=== PATIENT | male | born 1975 | race Caucasian/White ===

== ENCOUNTER 2017-03-14 18:33 | Emergency (ER) | payer BC, MEDICAID ==
[2017-03-14] MEDS ORDERED: HYDROcodone/Acetaminophen 10/325 mg Tablet ONE (19:10)
--- NOTE | 2017-03-14 20:29 | RAD ---
THREE VIEWS OF THE LUMBAR SPINE 03/14/17 INDICATION: Low back pain radiating to the left leg for three days. FINDINGS: There is multilevel, mild to moderate degenerative changes. Spinal alignment is preserved. No acute f racture is evident. SI joints are normal appearing. IMPRESSION: Mild to moderate disc degenerative disease of the lumbar spine. POS: ASHA
== END 2017-03-14 20:19 | disposition home or self-care (01) ==
LOC: ERS 18:33
DX: M51.36 Other intervertebral disc degeneration, lumbar region (principal); K21.9 Gastro-esophageal reflux disease without esophagitis; E78.5 Hyperlipidemia, unspecified; E66.9 Obesity, unspecified; E11.9 Type 2 diabetes mellitus without complications; E03.9 Hypothyroidism, unspecified; I10 Essential (primary) hypertension; Z79.4 Long term (current) use of insulin; Z86.711 Personal history of pulmonary embolism
CPT/HCPCS: 72100

== ENCOUNTER 2017-03-17 17:58 | Emergency (ER) | payer BC, MEDICAID ==
[2017-03-17] MEDS ORDERED: HYDROcodone/Acetaminophen 10/325 mg Tablet ONE (22:14)
--- NOTE | 2017-03-17 23:02 | ULT ---
VENOUS DOPPLER LEFT LOWER EXTREMITY: Indication: Left lower extremity pain and edema. TECHNIQUE: Glass scale, color Doppler, and vascular duplex with spectral analysis was performed of the deep venou s structures of the left lower extremity. The common femoral vein, superficial femoral vein, poplitea l vein, posterior tibial vein, proximal greater saphenous, and proximal profunda veins were assessed. FINDINGS: There is normal compressibility, flow, and augmentation seen within the deep venous structures of the left lower extremity. IMPRESSION: No evidence of DVT within the left lower extremity. POS: ASHA
== END 2017-03-17 23:21 | disposition home or self-care (01) ==
LOC: ERS 17:58
DX: M54.32 Sciatica, left side (principal); K21.9 Gastro-esophageal reflux disease without esophagitis; E66.9 Obesity, unspecified; E11.9 Type 2 diabetes mellitus without complications; E03.9 Hypothyroidism, unspecified; E78.5 Hyperlipidemia, unspecified; I10 Essential (primary) hypertension; Z79.82 Long term (current) use of aspirin; Z79.899 Other long term (current) drug therapy

== ENCOUNTER 2017-04-01 09:16 | Emergency (ER) | payer BC ==
[2017-04-01] MEDS ORDERED: Morphine 4 MG/ML Carpuject ONE (10:06)
[2017-04-01] MEDS ORDERED: Ketorolac Tromethamine 60 MG/2 ML VIAL ONE (10:06)
== END 2017-04-01 12:05 | disposition home or self-care (01) ==
LOC: ERS 09:16
DX: G89.29 Other chronic pain (principal); M54.9 Dorsalgia, unspecified; K21.9 Gastro-esophageal reflux disease without esophagitis; E78.5 Hyperlipidemia, unspecified; E66.9 Obesity, unspecified; E11.9 Type 2 diabetes mellitus without complications; E03.9 Hypothyroidism, unspecified; I10 Essential (primary) hypertension; Z86.711 Personal history of pulmonary embolism; Z79.4 Long term (current) use of insulin
CPT/HCPCS: 96372; J1885; J2270

== ENCOUNTER 2018-06-02 06:17 | Emergency (ER) | payer OTHER, MEDICAID ==
[2018-06-02] MEDS ORDERED: Nitroglycerin 2% Ointment 1 INCH/1 GM Packet ONE (06:50)
[2018-06-02] MEDS ORDERED: Aspirin Chewable 81 MG TAB ONE (06:50)
[2018-06-02] MEDS ORDERED: Nitroglycerin 0.4 MG TAB 1 EACH ONE (06:50)
[2018-06-02 07:04] LABS: #Eosinphils 0.3 thou/uL (0.0-0.7); #Lymphocytes 1.2 thou/uL (1.20-3.40); #Monocytes 0.7 thou/uL (0.11-0.59); #Neutrophils 2.9 thou/uL (1.40-6.50); %Basophils 0.4 % (0.0-1.0); %Eosinophils 5.9 % (0.0-10.0); %Lymphocytes 22.8 % (21.0-51.0); %Monocytes 14.2 % (0.0-10.0); %Neutrophils 56.7 % (42.0-75.0); Hemoglobin 12.4 g/dL (14.0-18.0); Mean Corpuscular HGB CONC 33.4 g/dL (32.0-36.0); Mean Corpuscular Hemoglobin 31.5 pg (27.0-31.0); Mean Corpuscular Volume 94.3 fL (78.0-98.0); Platelet Count 190 thou/uL (130-400); Red Blood Cell (RBC) Count 3.95 mill/uL (4.70-6.10); White Blood Cell (WBC) Count 5.2 thou/uL (4.8-10.8)
[2018-06-02 07:31] LABS: ALT (SGPT) 33 U/L (8-55); AST (SGOT) 34 U/L (5-34); Albumin 2.9 g/dL (3.5-5.0); Alkaline Phosphatase 112 U/L (40-150); Anion Gap 15 mmol/L (10-20); BUN (Urea Nitrogen) 30 mg/dL (8.9-20.6); Bilirubin, Total 0.4 mg/dL (0.2-1.2); CK (CPK) 234 U/L (30-200); Calc. Creatinine Clearance 0 mL/min (70-130); Calcium 9.7 mg/dL (7.8-10.44); Carbon Dioxide 24 mmol/L (22-29); Chloride 106 mmol/L (98-107); Estimated GFR-MDRD 32; Globulin 2.3 g/dL (2.4-3.5); Glucose 143 mg/dL (70-105); Lipase 15 U/L (8-78); Protein, Total 5.2 g/dL (6.0-8.3); Sodium 141 mmol/L (136-145)
--- NOTE | 2018-06-02 08:10 | RAD ---
FRONTAL VIEW CHEST: INDICATIONS: Chest pain. COMPARISON: 09/29/2016 FINDINGS: The cardiac silhouette is accentuated. There is no lobar consolidation, effusion, or discrete pneumo thorax. IMPRESSION: No focal consolidation. POS: ASHA
[2018-06-02 10:40] LABS: Troponin I 0.019 ng/mL (< 0.028)
--- NOTE | 2018-06-06 16:49 | EKG ---
Test Reason : Blood Pressure : / mmHG Vent. Rate : 072 BPM Atrial Rate : 072 BPM P-R Int : 186 ms QRS Dur : 088 ms QT Int : 404 ms P-R-T Axes : 019 -06 006 degrees QTc Int : 442 ms Normal sinus rhythm Poor R wave progression Abnormal ECG Confirmed by CLAUDIA TORRES DO ([id number]), deputy editor in chief TRENTON QUINN ([id number] on 06/06/2018 4:48:57 PM Referred By: Confirmed By:CLAUDIA TORRES DO
== END 2018-06-02 11:21 | disposition home or self-care (01) ==
LOC: ERS 06:17
DX: I16.0 Hypertensive urgency (principal); K21.9 Gastro-esophageal reflux disease without esophagitis; E11.9 Type 2 diabetes mellitus without complications; E03.9 Hypothyroidism, unspecified; E66.9 Obesity, unspecified; Z86.711 Personal history of pulmonary embolism; Z79.899 Other long term (current) drug therapy; Z79.82 Long term (current) use of aspirin
CPT/HCPCS: 36415; 71045; 80053; 82550; 83690; 84484; 85025; 93005; 94760; J3490

== ENCOUNTER 2018-08-02 13:44 | Emergency (ER) | payer MEDICARE, MEDICAID ==
[~2018-08-02 13:44] MED LIST: ISOVUE-370 76%-LOCM 1 ML ONE
[2018-08-02] MEDS ORDERED: Aspirin 325 MG TAB ONE (13:58)
[2018-08-02 14:36] LABS: #Eosinphils 0.2 thou/uL (0.0-0.7); #Lymphocytes 1.1 thou/uL (1.20-3.40); #Monocytes 0.8 thou/uL (0.11-0.59); #Neutrophils 4.9 thou/uL (1.40-6.50); %Basophils 0.6 % (0.0-1.0); %Eosinophils 3.5 % (0.0-10.0); %Lymphocytes 15.2 % (21.0-51.0); %Monocytes 10.7 % (0.0-10.0); Hemoglobin 12.1 g/dL (14.0-18.0); Mean Corpuscular HGB CONC 33.8 g/dL (32.0-36.0); Mean Corpuscular Hemoglobin 31.9 pg (27.0-31.0); Mean Corpuscular Volume 94.5 fL (78.0-98.0); Mean Platelet Volume 9.1 fL (7.4-10.4); Platelet Count 199 thou/uL (130-400); RBC Distribution Width 12.1 % (11.5-14.5); Red Blood Cell (RBC) Count 3.78 mill/uL (4.70-6.10); White Blood Cell (WBC) Count 6.9 thou/uL (4.8-10.8)
--- NOTE | 2018-08-02 14:53 | CT ---
CT ABDOMEN AND PELVIS WITH IV CONTRAST: Multiple axial tomograms were obtained through the abdomen and pelvis with IV enhancement. INDICATION: Right lower quadrant abdominal pain. COMPARISON: Comparison is made to CT abdomen and pelvis 11/20/2015. FINDINGS: Lung bases appear clear. Liver, spleen, and pancreas unremarkable. Adrenal glands unremarkable. A fat tumor left6 adrenal gland consistent with an adrenal myelolipoma has been previously described and is stable. Left renal atrophy is again noted. The right kidney shows mild compensatory hypertrophy. Some mild perinephric stranding of uncertain s ignificance. No hydronephrosis. Urinary bladder unremarkable. Correlate for pyelonephritis. Small bowel loops appear normal. Appendix appears unremarkable. Coln unremarkable. Aorta normal caliber. Images through the pelvis unremarkable. IMPRESSION: 1. Mild right perinephric stranding. No hydronephrosis or urinary calculus seen. Evaluate for urin florence tract infection. 2. CT abdomen and pelvis otherwise unremarkable and stable from prior exam. POS: OFF
--- NOTE | 2018-08-02 14:56 | RAD ---
PORTABLE CHEST: HISTORY: Chest pain. COMPARISON: 06/02/2018. FINDINGS: The lungs appear clear. No infiltrate seen. Heart and mediastinum unremarkable. Calcified mediasti nal and hilar lymph nodes again noted. IMPRESSION: No acute process. POS: OFF
[2018-08-02 15:12] LABS: ALT (SGPT) 27 U/L (8-55); AST (SGOT) 29 U/L (5-34); Albumin 2.5 g/dL (3.5-5.0); Alkaline Phosphatase 110 U/L (40-150); Anion Gap 13 mmol/L (10-20); BUN (Urea Nitrogen) 27 mg/dL (8.9-20.6); Bilirubin, Total 0.3 mg/dL (0.2-1.2); Calc. Creatinine Clearance 0 mL/min (70-130); Calcium 8.4 mg/dL (7.8-10.44); Carbon Dioxide 24 mmol/L (22-29); Chloride 105 mmol/L (98-107); Estimated GFR-MDRD 27; Globulin 2.2 g/dL (2.4-3.5); Glucose 317 mg/dL (70-105); Potassium 3.8 mmol/L (3.5-5.1); Protein, Total 4.7 g/dL (6.0-8.3); Sodium 138 mmol/L (136-145)
[2018-08-02 15:13] LABS: CK (CPK) 333 U/L (30-200)
[2018-08-02 15:28] LABS: Lipase 14 U/L (8-78)
[2018-08-02 15:32] LABS: Bilirubin Negative (Negative); Blood, Urine Trace (Negative); Clarity CLEAR (Clear); Glucose, Urine (Dipstick) 500 mg/dL (Negative); Leukocyte Negative (Negative); Nitrite Negative (Negative); Protein, Urine (Dipstick) 300 mg/dL (Neg-Trace); Specific Gravity, Urine 1.016 (1.002-1.036); Urobilinogen 0.2 mg/dL (0.2-1.0)
[2018-08-02 15:34] LABS: Bacteria/HPF None Seen HPF (None Seen); Hyaline Casts/LPF 4-6 HYALINE CAST LPF (0-3 Hyaline); Pathc Cast-AUWi Flag 0.54 (0-2.49); Squamous Epithelial 0-3 HPF (0-3); WBC/HPF 0-3 HPF (0-3)
[2018-08-02 16:24] LABS: Troponin I 0.014 ng/mL (< 0.028)
== END 2018-08-02 17:21 | disposition home or self-care (01) ==
LOC: ERS 13:44
DX: R10.84 Generalized abdominal pain (principal); R07.89 Other chest pain; R31.9 Hematuria, unspecified; E11.65 Type 2 diabetes mellitus with hyperglycemia; E11.22 Type 2 diabetes mellitus with diabetic chronic kidney disease; I12.9 Hypertensive chronic kidney disease with stage 1 through stage 4 chronic kidney disease, or unspecified chronic kidney disease; N18.9 Chronic kidney disease, unspecified; K21.9 Gastro-esophageal reflux disease without esophagitis; E78.5 Hyperlipidemia, unspecified; Z86.711 Personal history of pulmonary embolism; E66.9 Obesity, unspecified; E03.9 Hypothyroidism, unspecified; Z79.4 Long term (current) use of insulin; Z79.02 Long term (current) use of antithrombotics/antiplatelets; Z79.899 Other long term (current) drug therapy
CPT/HCPCS: 36415; 71045; 74177; 80053; 81003; 81015; 82550; 83690; 84484; 85025; 87086; 93005; Q9966

== ENCOUNTER 2018-08-06 16:19 | Emergency (ER) | payer MEDICARE, MEDICAID ==
[2018-08-06 17:00] LABS: #Eosinphils 0.2 thou/uL (0.0-0.7); #Lymphocytes 1.2 thou/uL (1.20-3.40); #Monocytes 0.8 thou/uL (0.11-0.59); #Neutrophils 3.7 thou/uL (1.40-6.50); %Basophils 0.8 % (0.0-1.0); %Eosinophils 4.1 % (0.0-10.0); %Lymphocytes 19.5 % (21.0-51.0); %Monocytes 12.9 % (0.0-10.0); %Neutrophils 62.8 % (42.0-75.0); Hemoglobin 12.3 g/dL (14.0-18.0); Mean Corpuscular HGB CONC 33.1 g/dL (32.0-36.0); Mean Corpuscular Hemoglobin 31.3 pg (27.0-31.0); Mean Corpuscular Volume 94.4 fL (78.0-98.0); Mean Platelet Volume 8.7 fL (7.4-10.4); Platelet Count 193 thou/uL (130-400); RBC Distribution Width 12.3 % (11.5-14.5); Red Blood Cell (RBC) Count 3.93 mill/uL (4.70-6.10); White Blood Cell (WBC) Count 5.9 thou/uL (4.8-10.8)
[2018-08-06 17:21] LABS: ALT (SGPT) 22 U/L (8-55); AST (SGOT) 24 U/L (5-34); Albumin 2.6 g/dL (3.5-5.0); Alkaline Phosphatase 104 U/L (40-150); Anion Gap 10 mmol/L (10-20); BUN (Urea Nitrogen) 28 mg/dL (8.9-20.6); Bilirubin, Total 0.3 mg/dL (0.2-1.2); CK (CPK) 413 U/L (30-200); Calc. Creatinine Clearance 0 mL/min (70-130); Calcium 8.7 mg/dL (7.8-10.44); Carbon Dioxide 24 mmol/L (22-29); Chloride 105 mmol/L (98-107); Estimated GFR-MDRD 23; Globulin 2.8 g/dL (2.4-3.5); Glucose 361 mg/dL (70-105); Potassium 3.8 mmol/L (3.5-5.1); Protein, Total 5.4 g/dL (6.0-8.3); Sodium 135 mmol/L (136-145)
--- NOTE | 2018-08-06 18:14 | RAD ---
AP view chest. HISTORY: Elevated blood pressure. AP view chest obtained. Comparison made to previous exam from 08/02/2018. AP view chest demonstrates cardiomegaly. The lungs are well aerated. No evidence of active intrathora cic disease seen. No evidence of effusions, pneumonia or pneumothorax seen. IMPRESSION: Cardiomegaly.
[2018-08-06] MEDS ORDERED: hydrALAZINE 25 MG TAB ONE (18:26)
[2018-08-06] MEDS ORDERED: Ketorolac Tromethamine 30 MG/ML VIAL ONE (18:26)
[2018-08-06] MEDS ORDERED: Morphine 4 MG/ML VIAL ONE (20:42)
== END 2018-08-06 21:45 | disposition home or self-care (01) ==
LOC: ERS 16:19
DX: I10 Essential (primary) hypertension (principal); R53.83 Other fatigue; K21.9 Gastro-esophageal reflux disease without esophagitis; E78.5 Hyperlipidemia, unspecified; Z86.711 Personal history of pulmonary embolism; E66.9 Obesity, unspecified; E11.9 Type 2 diabetes mellitus without complications; Z79.4 Long term (current) use of insulin; E03.9 Hypothyroidism, unspecified; Z79.899 Other long term (current) drug therapy
CPT/HCPCS: 36415; 71045; 80053; 82010; 82550; 84484; 85025; 93005; 96361; 96374; 96375; J1885; J2270

== ENCOUNTER 2020-02-25 10:19 | Inpatient (IN) | payer MEDICARE ==
[2020-02-25 11:25] LABS: #Eosinphils 0.3 thou/uL (0.0-0.7); #Lymphocytes 0.9 thou/uL (1.20-3.40); #Monocytes 0.6 thou/uL (0.11-0.59); #Neutrophils 3.3 thou/uL (1.40-6.50); %Basophils 0.6 % (0.0-1.0); %Eosinophils 5.5 % (0.0-10.0); %Lymphocytes 17.5 % (21.0-51.0); %Monocytes 12.1 % (0.0-10.0); %Neutrophils 64.4 % (42.0-75.0); Hemoglobin 9.3 g/dL (14.0-18.0); Mean Corpuscular HGB CONC 33.1 g/dL (32.0-36.0); Mean Corpuscular Hemoglobin 32.3 pg (27.0-31.0); Mean Corpuscular Volume 97.6 fL (78.0-98.0); Mean Platelet Volume 9.4 fL (7.4-10.4); Platelet Count 157 thou/uL (130-400); RBC Distribution Width 14.2 % (11.5-14.5); Red Blood Cell (RBC) Count 2.86 mill/uL (4.70-6.10); White Blood Cell (WBC) Count 5.1 thou/uL (4.8-10.8)
[2020-02-25 11:30] LABS: PTT 32.6 sec (22.9-36.1); Prothrombin Time 13.6 sec (12.0-14.7)
[2020-02-25] MEDS ORDERED: Furosemide 40 MG/4 ML VIAL ONE (11:30)
[2020-02-25 11:45] LABS: D-Dimer Test 5.37 *mcg/mL (0.27-0.43)
[2020-02-25 11:47] LABS: ALT (SGPT) 15 U/L (8-55); AST (SGOT) 25 U/L (5-34); Albumin 2.3 g/dL (3.5-5.0); Alkaline Phosphatase 94 U/L (40-110); Anion Gap 13 mmol/L (10-20); BUN (Urea Nitrogen) 40 mg/dL (8.9-20.6); Bilirubin, Total 0.4 mg/dL (0.2-1.2); Calc. Creatinine Clearance 0 mL/min (70-130); Calcium 7.9 mg/dL (7.8-10.44); Carbon Dioxide 20 mmol/L (22-29); Chloride 116 mmol/L (98-107); Globulin 2.9 g/dL (2.4-3.5); Glucose 155 mg/dL (70-105); Potassium 3.4 mmol/L (3.5-5.1); Protein, Total 5.2 g/dL (6.0-8.3); Sodium 146 mmol/L (136-145)
--- NOTE | 2020-02-25 11:47 | RAD ---
TWO VIEWS OF THE CHEST: COMPARISON: 08/06/2018. HISTORY: Chest pain. FINDINGS: A single view of the chest shows an enlarged but stable cardiomediastinal silhouette. There is obscu rity of the left hemidiaphragm which may be secondary to pleural effusion and/or adjacent infiltrate. Bilateral pulmonary vascular enlargement is seen. There is questionable airspace opacity projectin g over the right lower lobe. IMPRESSION: 1. Cardiomegaly. 2. Left pleural effusion with adjacent atelectasis versus infiltrate. 3. Right basilar infiltrate. POS: EAA
[2020-02-25] MEDS ORDERED: Nitroglycerin 2% Ointment 1 INCH/1 GM Packet ONE (12:01)
[2020-02-25 12:23] LABS: CKMB 6.5 ng/mL (0-6.6)
[2020-02-25] MEDS ORDERED: hydrALAZINE 25 MG TAB ONE (12:49)
[2020-02-25] MEDS ORDERED: Nitroglycerin 0.4 MG TAB 1 EACH ONE (12:49)
[2020-02-25] MEDS ORDERED: hydrALAZINE 20 MG/ML VIAL ONE ×2 (13:16→15:12)
[2020-02-25] MEDS ORDERED: Furosemide 40 MG/4 ML VIAL SLOW IVP SCH (13:30)
[2020-02-25] MEDS ORDERED: Aspirin 325 MG TAB PO SCH (13:30)
[2020-02-25] MEDS ORDERED: Nitroglycerin 0.4 MG TAB (25 Tab Bottle) SL PRN (13:31)
[2020-02-25] MEDS ORDERED: cefTRIAXone\\ROCEPHIN 2 GM VIAL ONE (13:38)
--- NOTE | 2020-02-25 13:38 | PDOC.HHP ---
Hospitalist HPI - History of Present Illness SOB History of Present Illness: Mr. Marlow is a 44-year-old male with past medical history of stage IV chronic kidney disease, hypertension, hyperlipidemia, pulmonary embolism, type 2 diabetes mellitus on insulin, hypothyroidism, obstructive sleep apnea, conges tive heart failure, morbid obesity who presents to the emergency room for shortness of breath. Patient reports that for the past 2 days he has had worsening shortness of breath that he notices is worse when he is lying down at night. Patient has also noticed a worsening of his peripheral edema including up into his arms the past week. Patient reports he still makes a small amount of urine and has been discussing dialysis options with Dr. Fournier. Patient denies chest pain, however does note a feeling of chest discomfort and tightness this morning around 5 AM while lying flat. Patient is a non-smoker and has a family history of cardiac disease. In emergency room initial vital signs 218/97, 82, 18, 96% on room air, 98.8. EKG showed normal sinus rhythm with no ischemic changes. Initial troponin 0 0.077. H/H 9.3/28.0. WBC 5.1. BUN/CR 40/6.05. Glucose 155. Sodium 146, potassium 3.7. D-dimer elevated at 5.37. BNP significantly elevated at 1761. Patient extremely hypertensive in the emergency room up until the 270s systolic. Patient received 3 sublingual nitro, p.o. hydralazine, IV hydralazine as well as 40 mg of IV Lasix. Hospitalist ROS - Review of Systems Constitutional: denies: fever, chills, sweats, weakness, malaise, other Eyes: denies: pain, vision change, conjunctivae inflammation, eyelid inflammation, redness, other ENT: denies: ear pain, ear discharge, nose pain, nose discharge, nose congestion, mouth pain, mouth swelling, throat pain, throat swelling, other Respiratory: reports: shortness of breath, SOB with excertion. denies: cough, dry, hemoptysis, pleuritic pain, sputum, wheezing, other Cardiovascular: reports: orthopnea, paroxysmal noc. dyspnea, edema. denies: chest pain, palpitations, light headedness, other Gastrointestinal: denies: nausea, vomiting, abdominal pain, diarrhea, constipation, melena, hematochezia, other Genitourinary: denies: dysuria, frequency, incontinence, hematuria, retention, other Musculoskeletal: denies: neck pain, shoulder pain, arm pain, back pain, hand pain, leg pain, foot pain, other Skin: denies: rash, lesions, daquan, bruising, other Neurological: denies: weakness, numbness, incoordination, change in speech, confusion, seizures, other - Medication Medications: Home medications include Levothyroxine Clonidine Hydralazine Clopidogrel Torsemide Humalog Lantus Losartan Methocarbamol Simvastatin Ranitidine Vitamin D3 Meprazole No known drug allergies Hospitalist History - Past Medical History Other Medical History: Past medical history includes Hypothyroidism Hypertension Hyperlipidemia Type 2 diabetes insulin-dependent Congestive heart failure CKD stage IV GERD Pulmonary embolism - Past Surgical History Other Surgical History: Past surgical history includes Ankle fracture repair Back surgery - Family History Other Family History: Family history of diabetes, cardiac disease - Social History Smoking Status: Never smoker Alcohol: reports: None Drugs: reports: none Living Situation: With Family Activity level: independent ambulation - Exam General Appearance: NAD, awake alert Eye: PERRL, anicteric sclera ENT: normocephalic atraumatic, no oropharyngeal lesions, moist mucosa Neck: supple, symmetric, no lymphadenopathy, no carotid bruit, JVD Heart: murmur present Heart - other findings: S3 gallop Respiratory: normal chest expansion, no tachypnea Respiratory - other findings: Crackles at bases Gastrointestinal: soft, non-tender, non-distended, normal bowel sounds, no palpable masses, no hepatomegaly, no splenomegaly, no bruit Extremities: 2+ LE edema Extremities - other findings: Severe pitting edema up to patient's elbows Skin: normal turgor, no lesions, no rashes Neurological: cranial nerve grossly intact, normal sensation to touch, no weakness, no focal deficits, no new deficit Musculoskeletal: normal tone, normal strength, no muscle wasting Psychiatric: normal affect, normal behavior, A&O x 3 Hospitalist Results - Labs Result Diagrams: 02/26/20 04:27 02/26/20 04:27 Lab results: WBC 5.1 thou/uL (4.8-10.8) 02/25/20 11:09 Hgb 9.3 g/dL (14.0-18.0) L 02/25/20 11:09 Hct 28.0 % (42.0-52.0) L 02/25/20 11:09 MCV 97.6 fL (78.0-98.0) 02/25/20 11:09 Plt Count 157 thou/uL (130-400) 02/25/20 11:09 Neutrophils % 64.4 % (42.0-75.0) 02/25/20 11:09 Sodium 146 mmol/L (136-145) H 02/25/20 11:09 Potassium 3.4 mmol/L (3.5-5.1) L 02/25/20 11:09 Chloride 116 mmol/L (98-107) H 02/25/20 11:09 Carbon Dioxide 20 mmol/L (22-29) L 02/25/20 11:09 BUN 40 mg/dL (8.9-20.6) H 02/25/20 11:09 Creatinine 6.05 mg/dL (0.7-1.3) H 02/25/20 11:09 Glucose 155 mg/dL (70-105) H 02/25/20 11:09 Calcium 7.9 mg/dL (7.8-10.44) 02/25/20 11:09 Total Bilirubin 0.4 mg/dL (0.2-1.2) 02/25/20 11:09 AST 25 U/L (5-34) 02/25/20 11:09 ALT 15 U/L (8-55) 02/25/20 11:09 Alkaline Phosphatase 94 U/L (40-110) 02/25/20 11:09 CK-MB (CK-2) 6.5 ng/mL (0-6.6) 02/25/20 11:09 Troponin I 0.077 ng/mL (< 0.028) H 02/25/20 11:09 B-Natriuretic Peptide 1761.6 pg/mL (0-100) H 02/25/20 11:09 Serum Total Protein 5.2 g/dL (6.0-8.3) L 02/25/20 11:09 Albumin 2.3 g/dL (3.5-5.0) L 02/25/20 11:09 Hospitalist H&P A/P - Plan Plan: Acute CHF exacerbation/Fluid overload 44-year-old male with fluid overload. Last echocardiogram was done in 2017 which showed diastolic dysfunction. At that time unable to assess EF due to patient's body habitus. Patient impressively edematous with pitting edema up to his elbows. Chest x-ray showed cardiomegaly and bilateral infiltrates left worse than right. BNP significantly elevated at 1761. Patient short of breath with orthopnea but maintaining oxygen saturation on room air. Patient received 40 mg of IV Lasix in emergency room. Patient however does not make much urine secondary to his chronic kidney disease. Likely patient's fluid overload status related to his kidney failure and component of CHF. If we are unable to diurese patient sufficiently may need dialysis to remove some of patient's fluid. Plan IV Lasix 80 mg twice daily I/O, Daily weights -Nephrology consult Cardiology consult with repeat echocardiogram Acute renal failure superimposed on chronic kidney disease Patient with BUNs/CR 40/6.05. Baseline appears to be somewhere around 5. Patient reports he has been making smaller and smaller amounts of urine. Has received 40 mg of IV Lasix x2 in the emergency room and has had no urine output yet. Patient has extensive edema up to his elbows, patient may need to be initiated on dialysis to remove some of his fluid burden. Also question nephrotic syndrome given extent of edema. Albumin low at 2.3. Patient follows with Dr. Fournier who we will consult for further recommendations. Plan Trend kidney function Avoid nephrotoxic agents when possible UA with microscopic Nephrology consult, recommendations appreciated Hypertensive emergency Patient in hypertensive emergency with significantly elevated blood pressures up into the 270 systolic. Patient denies headache or visual changes. Does have elevated troponin of 0.077 as well as ARF superimposed on CKD. Patient received 3 sublingual nitros, p.o. hydralazine, IV hydralazine in the emergency room with reduction in his blood pressure down to the 200s. We will slowly lower patient's blood pressure and continue his p.o. home medications in the morning. Plan As needed hydralazine IV for BPs over 200 Restart patient's home hydralazine, clonidine Elevated troponin Troponin mildly elevated to 0.077. Suspect troponin leak in setting of CHF exacerbation and CKD. Patient did endorse mild chest discomfort this morning but currently denies chest pain. EKG with no ischemic changes. Patient did received 325 mg of aspirin in the emergency room and is on a daily aspirin and Plavix. We will continue these and continue to trend troponins. Plan Trend troponin Telemetry monitoring Continue daily aspirin Plavix Monitor for any symptoms Elevated D-dimer D-dimer elevated to 5.37. Patient has a history of pulmonary embolisms. Patient unable to undergo CTA PE protocol secondary to severe CKD. Suspect patient shortness of breath likely related to his acute CHF exacerbation and edema rather than pulmonary embolism. If patient's respiratory status does not improve once fluid is removed will consider VQ scan. Plan Consider VQ scan if respiratory status does not improve Hyperlipidemia Continue home statin Type 2 diabetes mellitus Patient on insulin therapy since his 20s. Patient reports however that recently he has not been taking his insulin injectable medication because his blood sugars have been low. Will obtain hemoglobin A1c and place patient on insulin sliding scale. Plan Hemoglobin A1c [facility] glucose checks Hypothyroidism History of hypothyroidism. Patient has history of noncompliance with medications. Will check TSH and restart home levothyroxine. GERD History of GERD. We will continue pantoprazole. Obstructive sleep apnea History of ARDEN with home CPAP. Will make CPAP available for patient in the hospital. DVT prophylaxisSQ heparin Full codeMDM is patient's Case discussed with attending physician, Dr. Acevedo.
[2020-02-25] MEDS ORDERED: Azithromycin 500 MG VIAL ONE ×2 (13:39→15:02)
[2020-02-25] MEDS ORDERED: Furosemide 80 MG TAB PO SCH (14:00)
[2020-02-25 14:27] LABS: Lactic Acid 0.7 mmol/L (0.5-2.2)
[2020-02-25 14:30] LABS: ALT (SGPT) 14 U/L (8-55); AST (SGOT) 22 U/L (5-34); Albumin 2.2 g/dL (3.5-5.0); Alkaline Phosphatase 90 U/L (40-110); Bilirubin, Direct 0.2 mg/dL (0.1-0.3); Bilirubin, Total 0.4 mg/dL (0.2-1.2)
[2020-02-25] MEDS ORDERED: Cefepime 2 GM in Sodium Chloride 0.9% 100 ML IVPB SCH (15:15)
[2020-02-25] MEDS ORDERED: Tuberculin PPD 0.1 ML VIAL I-DERMAL SCH (17:00)
[2020-02-25 18:22] LABS: HBSAB Concentration Less than 8.00 mIU/mL; HBSAg Index 0.15 S/CO (0-0.99); Hep B Core Total Ab Non-Reactive (NonReactive); Hep B Core Total Index 0.06 S/CO (0-0.79); Hep B Surf AB Non-Reactive (NonReactive); Hep B Surf Ag Non-Reactive S/CO (NonReactive); Hep C IgG Ab Non-Reactive (NonReactive); Hep C Index 0.14 S/CO (0-0.79)
[2020-02-25 18:31] LABS: CKMB 6.8 ng/mL (0-6.6)
--- NOTE | 2020-02-25 19:19 | CON ---
DATE OF CONSULTATION: 02/25/2020 CONSULTING PHYSICIAN: Shi Booker PA-C REASON FOR CONSULTATION: Worsening labs, shortness of breath, fluid overload. REASON FOR ADMISSION: Shortness of breath. HISTORY OF PRESENT ILLNESS: This is a 44-year-old male with history of stage 4 kidney disease, hypertension, hyperlipidemia, pulmonary embolism, came to the hospital with shortness of breath. The patient has been following up with my clinic and was having worsening labs, but he noted that he is having more swelling and is not responding to fluid pills, so he came to the hospital. No fever or chills. No nausea or vomiting. PAST MEDICAL HISTORY: Positive for chronic kidney disease stage 4, GERD, pulmonary embolism, congestive heart failure, type 2 diabetes, hyperlipidemia, hypertension, hypothyroidism. PAST SURGICAL HISTORY: Ankle fracture surgery, back surgery. HOME MEDICATIONS: Reviewed. ALLERGIES: NO KNOWN DRUG ALLERGIES. SOCIAL HISTORY: No smoking, alcohol, or drug use. FAMILY HISTORY: No history of kidney disease. REVIEW OF SYSTEMS: The following complete review of systems was negative, unless otherwise mentioned in the HPI or below: CONSTITUTIONAL: Weight loss or gain, ability to conduct usual activities. SKIN: Rash, itching. EYES: Double vision, pain. ENT/MOUTH: Nose bleeding, neck stiffness, pain, tenderness. CARDIOVASCULAR: Palpitations, dyspnea on exertion, orthopnea. RESPIRATORY: Shortness of breath, wheezing, cough, hemoptysis, fever or night sweats. GASTROINTESTINAL: Poor appetite, abdominal pain, heartburn, nausea, vomiting, constipation, or diarrhea. GENITOURINARY: Urgency, frequency, dysuria, nocturia. MUSCULOSKELETAL: Pain, swelling. NEUROLOGIC/PSYCHIATRIC: Anxiety, depression. ALLERGY/IMMUNOLOGIC: Skin rash, bleeding tendency. PHYSICAL EXAMINATION: GENERAL: Reveals a morbidly obese male in no apparent distress. VITAL SIGNS: Temperature 97.5, pulse 89, respiratory rate 16, blood pressure 177/86. HEENT: Atraumatic, normocephalic. Oral mucosa moist. NECK: Supple. CARDIOVASCULAR: S1 and S2. Rate and rhythm are regular. RESPIRATORY: Clear. GASTROINTESTINAL: Abdomen is soft. MUSCULOSKELETAL: 1+ edema. DERMATOLOGIC: No skin rash. NEUROLOGIC: Alert and awake. PSYCHIATRIC: Mood and affect normal. LABORATORY DATA: Hemoglobin is 9.3, potassium 3.4, BUN is 40, creatinine is 6.05. ASSESSMENT AND PLAN: 1. End-stage renal disease. Plan to start on dialysis. We will check dialysis orders. We will have Surgery consult for access placement. We will have Case Management follow up for outpatient dialysis placement. 2. Anemia of chronic disease. We will start on Epogen. 3. Edema. We will remove fluid with dialysis. 4. Acidosis, worse. 5. Hypoalbuminemia. 6. Diabetic nephropathy. 7. Morbid obesity. Plan to start on Epogen. Start on dialysis. We will follow. Thank you for the consult. Job ID: [id number]
[2020-02-25] MEDS: Heparin 5,000 UNITS/ML VIAL SC SCH (19:21)
[2020-02-25] MEDS: hydrALAZINE 25 MG TAB PO SCH (19:22)
--- NOTE | 2020-02-25 19:59 | OP ---
DATE OF PROCEDURE: 02/25/2020 PREOPERATIVE DIAGNOSES: Morbid obesity, metabolic syndrome, insulin dependent diabetes mellitus, end-stage renal disease, in need of acute dialysis access. POSTOPERATIVE DIAGNOSES: Morbid obesity, metabolic syndrome, insulin dependent diabetes mellitus, end-stage renal disease, in need of acute dialysis access. PROCEDURE PERFORMED: Right femoral vein Trialysis catheter. ANESTHESIA: 1% Xylocaine. DESCRIPTION OF PROCEDURE: With the patient at bedside, right groin was prepared with ChloraPrep and draped in routine fashion, local anesthetic was infiltrated in the skin and subcutaneous tissue about the operative site. Trocar catheter cannulated the femoral vein, J-wire threaded, trocar catheter removed. Seldinger technique used to place Trialysis catheter using the dilators. J-wire was removed. Catheter aspirated of blood, flushed with heparinized saline solution. The patient tolerated the procedure well. Catheter secured with 3-0 nylon. Sterile dressing applied. Job ID: [id number]
[2020-02-25 20:05] LABS: SARS-CoV-2 IgG Ab Non-Reactive (NonReactive); SARS-CoV-2 IgG Index 0.04 S/CO (< 1.40)
[2020-02-26] MEDS: EPOETIN ALFA-EPBX (ESRD) 10,000 UNIT/ML VIAL IVP SCH (00:09)
[2020-02-26] MEDS: hydrALAZINE 25 MG TAB PO SCH ×4 (00:11→21:27)
[2020-02-26] MEDS: Heparin 5,000 UNITS/ML VIAL SC SCH ×4 (00:11→21:27)
[2020-02-26] MEDS: Amlodipine 5 MG TAB PO SCH ×3 (00:11→21:27)
--- NOTE | 2020-02-26 00:37 | CON ---
DATE OF CONSULTATION: 02/25/2020 INDICATION FOR CONSULTATION: This is a 44-year-old gentleman with anasarca, who has a history of end-stage renal disease, hypertension, dyslipidemia. He has had pulmonary emboli in the past. He has type 2 diabetes as well as obstructive sleep apnea. He presented with increasing shortness of breath. He has had the swelling that has been ongoing for quite some time almost a year. He has not been seen in the office recently, but has followed up with Dr. Stacy a couple of years ago. He also notes that he is only making a small amount of urine and his kidneys have been failing and he has been in consultation with the business enterprise officer about possible dialysis. He presented today with worsening symptoms with hypertension. EKG showed decreased R-wave progression in V1 through V4. Cardiac enzymes were indeterminate, but showed a slight elevation of cardiac enzymes, which was most likely associated with some congestive heart failure type symptoms or due to his end-stage renal disease. He denied any chest pain. He did state that he thinks he either had a stroke or heart attack in the past that he is uncertain as to which one this is, but he denies any chest pain. At this time, he is being prepped to have dialysis this evening. His BNP was elevated at 1761, and I suspect that most of his edema is associated with his end-stage renal disease. He will need to undergo echocardiogram tomorrow morning to evaluate the left ventricular systolic function. PAST MEDICAL HISTORY: Significant for hypertension, type 2 diabetes, chronic end-stage renal disease. He has had a history of pulmonary emboli in the past. He has had a history of hypertension, hypothyroidism, history of congestive heart failure, possible myocardial infarction, but he is uncertain whether this is true or not. We will need to try to evaluate his old records. He has had ankle fracture repair. FAMILY HISTORY: Noncontributory, but is positive for diabetes and also heart disease. SOCIAL HISTORY: He has no history of alcohol or tobacco abuse. He continues to live with his family. REVIEW OF SYSTEMS: HEENT: He had no significant new complaints from HEENT standpoint. PULMONARY: Complaints of shortness of breath. CARDIOVASCULAR: Remaining in the shortness of breath, but no chest pain. GI: He denied any nausea, vomiting, or diarrhea. : He has decreased urination, but denied any significant dysuria, polyuria, or hematuria. MUSCULOSKELETAL: Mainly he complains of lower extremity edema making him difficult to ambulate. NEUROLOGIC: He denied any significant complaints. No seizures or syncope. MEDICATIONS: Prior to admission included clonidine, levothyroxine, Plavix, hydralazine, torsemide, insulin. He is on Humalog and Lantus insulin, losartan, methocarbamol, simvastatin, vitamin D3, omeprazole, and ranitidine. ALLERGIES: HE HAS NO KNOWN DRUG ALLERGIES. PHYSICAL EXAMINATION: GENERAL: Reveals a middle-aged gentleman, who is morbidly obese. He appears to be somewhat uncomfortable. He is about to go to dialysis. VITAL SIGNS: Blood pressure is 177/86. He is afebrile. Heart rate is in the 80s, shows a sinus rhythm, respiratory rate 16, O2 saturation 96%. HEENT: Unremarkable. CHEST: Has decreased breath sounds with poor inspiratory effort. CARDIOVASCULAR: Revealed a regular rate and rhythm. I did not hear any significant murmurs, heaves, thrills, bruits, or rubs. ABDOMEN: Shows morbid obesity. EXTREMITIES: Show 3+ edema. He has anasarca essentially all the way up to the abdominal area. Abdominal wall also is edematous. NEUROLOGIC: I could not elicit any gross focal deficits at this time. LABORATORY DATA: Shows a WBC of 5.1, hemoglobin 9.3, platelet count 157,000. Sodium is 146, potassium 3.4, BUN was 40 with a creatinine of 6.05, blood sugar was 155. Cardiac enzyme as already mentioned as well as BNP. IMPRESSION: A 44-year-old gentleman with end-stage renal disease, who is now decompensated with significant edema, most likely due to renal failure. He is no longer making enough urine to support the amount of fluid that he is drinking. We will need to undergo dialysis in order to help compensate with the fluid. We will continue to follow the patient. We will try to obtain any records if he has had any previous stress testings or evaluations. His chest x-ray showed some cardiomegaly with what appeared to be either a right basilar atelectasis or some time effusion, also some congestion on the left side was noted. 1. End-stage renal disease, for which he will undergo dialysis to eliminate the fluid. 2. History in the past of possible congestive heart failure. Echocardiogram will be obtained. He denies any chest pain at this time. His EKG does not show any acute changes. His cardiac enzymes most likely are elevated due to the end-stage renal disease, as well as demand ischemia associated with the congestive heart failure or with the increased volume with fluid overloaded. 3. Hypertension. We will see how he does after dialysis. He may need further medical management of the hypertension. We will continue his medications at this time. We will be more than happy to continue to follow the patient with you. Job ID: [id number]
[2020-02-26] MEDS ORDERED: HumaLOG 300 UNITS/3 ML VIAL SC PRN (01:49)
[2020-02-26] MEDS ORDERED: Dextrose 50% Abboject 50 ML SYRINGE SLOW IVP PRN (01:49)
[2020-02-26] MEDS ORDERED: Dextrose 5% in Water 1,000 ML IV PRN (01:49)
[2020-02-26 03:34] LABS: SARS-CoV-2 MS2 Positive; SARS-CoV-2 N Gene Negative; SARS-CoV-2 S Gene Negative; SARS-CoV-2 by NAA Not Detected (NotDetected); SARS-CoV-2 orf1ab Negative
[2020-02-26] MEDS ORDERED: Labetalol HCl 100 MG/20 ML VIAL SLOW IVP PRN (04:39)
[2020-02-26 04:43] LABS: #Eosinphils 0.2 thou/uL (0.0-0.7); #Lymphocytes 0.8 thou/uL (1.20-3.40); #Monocytes 0.6 thou/uL (0.11-0.59); #Neutrophils 2.6 thou/uL (1.40-6.50); %Basophils 0.6 % (0.0-1.0); %Eosinophils 4.3 % (0.0-10.0); %Lymphocytes 19.6 % (21.0-51.0); %Monocytes 13.5 % (0.0-10.0); Hemoglobin 8.4 g/dL (14.0-18.0); Mean Corpuscular HGB CONC 32.5 g/dL (32.0-36.0); Mean Corpuscular Hemoglobin 31.5 pg (27.0-31.0); Mean Corpuscular Volume 96.8 fL (78.0-98.0); Mean Platelet Volume 9.6 fL (7.4-10.4); Platelet Count 149 thou/uL (130-400); RBC Distribution Width 14.3 % (11.5-14.5); Red Blood Cell (RBC) Count 2.68 mill/uL (4.70-6.10); White Blood Cell (WBC) Count 4.2 thou/uL (4.8-10.8)
[2020-02-26 05:10] LABS: ALT (SGPT) 15 U/L (8-55); AST (SGOT) 25 U/L (5-34); Alkaline Phosphatase 83 U/L (40-110); Anion Gap 13 mmol/L (10-20); BUN (Urea Nitrogen) 37 mg/dL (8.9-20.6); Bilirubin, Total 0.3 mg/dL (0.2-1.2); Calc. Creatinine Clearance 44 mL/min (70-130); Calcium 7.6 mg/dL (7.8-10.44); Carbon Dioxide 21 mmol/L (22-29); Chloride 113 mmol/L (98-107); Globulin 2.7 g/dL (2.4-3.5); Glucose 154 mg/dL (70-105); Potassium 3.4 mmol/L (3.5-5.1); Protein, Total 4.7 g/dL (6.0-8.3); Sodium 144 mmol/L (136-145)
[2020-02-26] MEDS: cloNIDine 0.1 MG TAB PO PRN (05:10)
[2020-02-26] MEDS: Levothyroxine Sodium 112 MCG TAB PO SCH (05:10)
[2020-02-26 05:13] VITALS: BMI 47.9
--- NOTE | 2020-02-26 07:48 | CON ---
DATE OF CONSULTATION: HISTORY OF PRESENT ILLNESS: Kenyon Marlow is a 44-year-old white male, morbidly obese, 6 feet 2 inches, 377 pounds, 48 BMI, , lives at home, and he is on disability. The patient has had back surgery and ankle surgery. He admitted from the emergency room today. Hospitalist Service, Dr. Fournier has seen him. The patient has metabolic syndrome, morbid obesity, hypertension, diabetes, and end-stage renal disease. I have been asked to see him regarding placement of bedside dialysis catheter and he will need future dialysis access permanent cuffed tunneled hemodialysis catheter and a fistula. Ultrasound vein mapping has been ordered. Forearm IV removed. SOCIAL HISTORY: Tobacco, none. Alcohol, none. MEDICATIONS: 1. Levothyroxine. 2. Clonidine. 3. Hydralazine. 4. Plavix. 5. Torsemide. 6. Insulin. 7. Losartan. 8. Methocarbamol. 9. Simvastatin. 10. Ranitidine. 11. Vitamin D3. 12. Omeprazole. PAST SURGICAL HISTORY: Back surgery and ankle surgery. PAST MEDICAL HISTORY: Hypothyroidism, hypertension, hyperlipidemia, type 2 diabetes mellitus insulin dependent, end-stage renal disease, GERD, history of pulmonary embolism, metabolic syndrome, and morbid obesity. Echocardiogram last performed in September 2016, recorded at this hospital, technically difficult study. EF appears normal, but difficult study. Mild mitral and tricuspid regurgitation. The patient has been seen by Dr. Stacy in the past from a cardiac standpoint, having last seen him in the hospital in January 2016 for chest pain and slurred speech. At that time, the patient had TIAs, chest pain, and elevated troponin. Consideration of stress test was given at that time, but not on record at this facility. CAT scan of the abdomen and pelvis July 2018, no acute findings. PHYSICAL EXAMINATION: VITAL SIGNS: 6 feet 2 inches, 377 pounds, and 48 BMI. 97.5, 89, and 177/86. HEAD, EARS, EYES, NOSE, AND THROAT: Unremarkable. LUNGS: Clear to auscultation. CARDIAC: Regular rate and rhythm without murmur or gallop. ABDOMEN: Morbid obese, large pannus. No is evident. EXTREMITIES: Edema. Palpable radial pulses. IV forearm removed. LABORATORY DATA: White count 5 and hemoglobin 9.3. Liver function tests normal. Sodium 146, potassium 3.4, BUN 40, creatinine 6, and GFR 10. ASSESSMENT AND PLAN: 1. End-stage renal disease, plan placement of femoral vein dialysis catheter, initiate dialysis. We will plan more definitive cuffed tunneled hemodialysis catheter and an arm fistula later in the week. Ultrasound vein mapping will be obtained. Avoid IVs above his wrist. He probably will need a staged transposition fistula if he has available veins due to his morbid obesity. 2. History of transient ischemic attacks. 3. Disability from morbid obesity and back problems. 4. History of pulmonary embolism. 5. Other medical problems as noted above. Job ID: [id number]
[2020-02-26 07:55] LABS: Hemoglobin A1c 6.8 % (4.0-6.0)
--- NOTE | 2020-02-26 08:30 | PDOC.HOSPP ---
- Subjective Encounter Date: 02/26/20 Encounter Time: 08:29 Subjective: Overnight patient had temporary dialysis catheter placed by Dr. Hills and had dialysis session. This morning patient reports he feels as though a lot of the fluid has been removed, although still continues to endorse shortness of breath. Chart and medications reviewed. - Objective Vital Signs & Weight: Vital Signs (12 hours) Temp Pulse Resp BP Pulse Ox 02/26/20 07:57 97.6 F 80 17 180/84 H 97 02/26/20 04:00 97.5 F L 80 20 193/88 H 92 L 02/26/20 00:11 84 02/26/20 00:00 97.4 F L 84 18 207/78 H 95 Weight Weight 373 lb 7.409 oz I&O: 02/25/20 02/26/20 02/27/20 06:59 06:59 06:59 Output Total 150 Balance -150 Result Diagrams: 02/26/20 04:27 02/26/20 04:27 Additional Labs: Accuchecks 02/26/20 05:46 POC Glucose 129 H Hospitalist ROS - Review of Systems Constitutional: denies: fever, chills, sweats, weakness, malaise, other Eyes: denies: vision change ENT: reports: mouth swelling. denies: nose discharge, nose congestion, throat pain Respiratory: reports: shortness of breath. denies: cough, dry, hemoptysis, SOB with excertion, pleuritic pain, sputum, wheezing, other Cardiovascular: denies: chest pain, palpitations, orthopnea, paroxysmal noc. dyspnea, edema, light headedness, other Gastrointestinal: denies: nausea, vomiting, abdominal pain, diarrhea, constipat ion, melena, hematochezia, other Genitourinary: denies: dysuria, hematuria Musculoskeletal: denies: neck pain, shoulder pain, arm pain, back pain, hand pain, leg pain, foot pain, other Skin: denies: rash, lesions, daquan, bruising, other Neurological: denies: weakness, numbness - Medication Medications: Active Medications Generic Name Dose Route Start Last Admin Trade Name Freq PRN Reason Stop Dose Admin Amlodipine Besylate 5 mg 02/25/20 21:00 02/26/20 00:11 Amlodipine 5 Mg Tab PO 5 mg BID SARA Administration Clonidine 0.1 mg 02/26/20 04:42 02/26/20 05:10 Clonidine 0.1 Mg Tab PO 0.1 mg Q6H PRN Administration Systolic BP > 180 Epoetin Gabriel-epbx 10,000 unit 02/25/20 18:19 02/26/20 00:09 Epoetin Gabriel-Epbx (Esrd) 10,000 Unit/Ml Vial IVP Not Given MoWeFr [facility] Furosemide 80 mg 02/25/20 14:00 02/25/20 19:36 Furosemide 80 Mg Tab PO Not Given 0900,1400 [facility] Heparin Sodium (Porcine) 5,000 units 02/25/20 15:00 02/26/20 00:11 Heparin 5,000 Units/Ml Vial SC 5,000 units TID SARA Administration Hydralazine HCl 25 mg 02/25/20 15:00 02/26/20 00:11 Hydralazine 25 Mg Tab PO 25 mg TID SARA Administration Levothyroxine Sodium 112 mcg 02/26/20 06:00 02/26/20 05:10 Levothyroxine Sodium 112 Mcg Tab PO 112 mcg 0600 SARA Administration - Exam General Appearance: NAD, awake alert Eye: PERRL, anicteric sclera ENT: normocephalic atraumatic, no oropharyngeal lesions, moist mucosa Neck: supple, symmetric, no JVD, no thyromegaly, no lymphadenopathy, no carotid bruit Heart: RRR, no murmur, no gallops, no rubs, normal peripheral pulses Respiratory: CTAB, no wheezes, no rales, no ronchi, normal chest expansion, no tachypnea, normal percussion Gastrointestinal: soft, non-tender, non-distended, normal bowel sounds, no palpable masses, no hepatomegaly, no splenomegaly, no bruit Extremities: 2+ LE edema Extremities - other findings: 1+ pitting edema to upper extremities, 2+ to lower Skin: normal turgor, no lesions, no rashes Neurological: cranial nerve grossly intact, normal sensation to touch, no weakness, no focal deficits, no new deficit Musculoskeletal: normal tone, normal strength, no muscle wasting Psychiatric: normal affect, normal behavior, A&O x 3 Hosp A/P - Plan 44-year-old male with past medical history of end-stage renal disease, hypert ension, CHF with diastolic dysfunction, hypertension, hyperlipidemia, type 2 diabetes mellitus, GERD, sleep apnea who presents with acute fluid overload causing shortness of breath requiring dialysis. Congestive Heart Failure and Fluid Overload 44-year-old male with fluid overload. Last echocardiogram was done in 2017 which showed diastolic dysfunction. At that time unable to assess EF due to patient's body habitus. Patient impressively edematous with pitting edema up to his elbows. Chest x-ray showed cardiomegaly and bilateral infiltrates left worse than right. BNP significantly elevated at 1761. Patient short of breath with orthopnea but maintaining oxygen saturation on room air. Patient on responding to Lasix as he does not make much urine. Patient underwent dialysis overnight to remove some of the fluid. Echocardiogram is pending. Cardiology is following, recommendations appreciated. Plan Echocardiogram pending I/O, Daily weights -Nephrology following Cardiology following Acute renal failure superimposed on chronic kidney disease Patient with BUNs/CR 40/6.05. Baseline appears to be somewhere around 5. Patient reports he has been making smaller and smaller amounts of urine. Has received 40 mg of IV Lasix x2 in the emergency room and has had no urine output yet. Patient has extensive edema up to his elbows, and was started on dialysis by Dr. Fournier. Temporary dialysis catheter was placed by Dr. Hills. Patient's fluid status much improved this morning with plans for repeat dialysis session today. BUN/CR this morning 37/5.22. Plan Dialysis Trend kidney function Avoid nephrotoxic agents when possible Nephrology following Hypertensive emergency Patient in hypertensive emergency with significantly elevated blood pressures up into the 270 systolic. Patient denies headache or visual changes. Does have elevated troponin of 0.077 as well as ARF superimposed on CKD. Patient received 3 sublingual nitros, p.o. hydralazine, IV hydralazine in the emergency room with reduction in his blood pressure down to the 200s. Patient's blood pressure was slowly reduced and is now in the 180s. Plan As needed hydralazine IV for BPs over 200 Restart patient's home hydralazine, clonidine, amlodipine Elevated troponin Troponin mildly elevated to 0.077, 0.077, 0.061. Suspect troponin leak in setting of CHF exacerbation and CKD. Patient denies chest pain. EKG with no ischemic changes. Patient did received 325 mg of aspirin in the emergency room and is on a daily aspirin and Plavix. Cardiology following. Plan Troponins flat Telemetry monitoring Continue daily aspirin Plavix Monitor for any symptoms Elevated D-dimer D-dimer elevated to 5.37. Patient has a history of pulmonary embolisms. Patient unable to undergo CTA PE protocol secondary to severe CKD. Suspect patient shortness of breath likely related to his acute CHF exacerbation and edema rather than pulmonary embolism. If patient's respiratory status does not improve once fluid is removed will consider VQ scan. Plan Consider VQ scan if respiratory status does not improve Hyperlipidemia Continue home statin Type 2 diabetes mellitus Patient on insulin therapy since his 20s. Patient reports however that recently he has not been taking his insulin injectable medication because his blood sugars have been low. Will obtain hemoglobin A1c and place patient on insulin sliding scale. Plan Hemoglobin A1c ISS ACHS glucose checks Hypothyroidism History of hypothyroidism. Patient has history of noncompliance with medications. TSH 4.9, will restart home levothyroxine. GERD History of GERD. We will continue pantoprazole. Obstructive sleep apnea History of ARDEN with home CPAP. Will make CPAP available for patient in the hospital. DVT prophylaxisSQ heparin Full codeMDM is patient's Case discussed with attending physician, Dr. Herrmann.
[2020-02-26] MEDS ORDERED: FLU VACC QS2020-21(6MOS UP)/PF 60 MCG/0.5 ML SYRINGE IM ONE (09:00)
[2020-02-26] MEDS: Aspirin Chewable 81 MG TAB PO SCH (09:58)
--- NOTE | 2020-02-26 11:54 | ULT ---
BILATERAL LOWER EXTREMITY VENOUS ULTRASOUND: Date: 02/26/2020 HISTORY: End-stage renal disease. Evaluate veins for dialysis access. TECHNIQUE: Multiplanar Glass scale and color Doppler images were obtained in a bilateral lower extremity venous u ltrasound. Spectral analysis of the Doppler waveforms were performed. FINDINGS: The bilateral internal jugular veins and subclavian veins are patent without evidence of thrombus. Th e right brachial, radial, and ulnar arteries measure 6.4, 3.3, and 2.7 mm in size, respectively. The left brachial, radial, and ulnar arteries measure 5.7, 3.2, and 2.5 mm in size, respectively. RIGHT UPPER EXTREMITY CEPHALIC VEIN Shoulder 3.6 mm Upper arm 3.9 mm Mid upper arm 3.1 mm Just proximal to elbow 3.6 mm Just distal to elbow 2.7 mm Mid forearm 3.0 mm At wrist 1.7 mm BASILIC VEIN Shoulder 7.0 mm Upper arm 6.6 mm Mid upper arm 6.6 mm Just proximal to elbow 1.8 mm Just distal to elbow 4.8 mm Mid forearm 3.5 mm At wrist 1.5 mm LEFT UPPER EXTREMITY CEPHALIC VEIN Shoulder 4.1 mm Upper arm 3.8 mm Mid upper arm 3.4 mm Just proximal to elbow 4.2 mm Just distal to elbow 4.2 mm Mid forearm 4.2 mm At wrist 2.9 mm BASILIC VEIN Shoulder 7.6 mm Upper arm 6.4 mm Mid upper arm 5.7 mm Just proximal to elbow 4.5 mm Just distal to elbow 4.1 mm Mid forearm 2.8 mm At wrist 1.4 mm IMPRESSION: Vein mapping for dialysis access as above. POS: ROEL
[2020-02-26] MEDS: HumaLOG 300 UNITS/3 ML VIAL SC PRN (12:11)
--- NOTE | 2020-02-26 12:46 | PDOC.CPN ---
- Subjective Date: 02/26/20 Time: 10:30 Interval history: No overnight events, patient states he still has slight chest discomfort, states it is much better than when he was admitted to the hospital. Denies shortness of breath. He had his dialysis catheter placed yesterday. - Review of Systems General: denies: fever/chills, weight/appetite/sleep changes, night sweats, fatigue Respiratory: denies: cough, congestion, shortness of breath, exercise intolerance Cardiovascular: reports: chest pain Gastrointestinal: denies: nausea, vomiting, diarrhea, constipation, abd pain, GI bleeding Musculoskeletal: reports: swelling. denies: pain, tenderness, stiffness, arthritis/arthralgias Neurological: denies: numbness, syncope, seizure, weakness - Objective Allergies/Adverse Reactions: Allergies Allergy/AdvReac Type Severity Reaction Status Date / Time No Known Drug Allergies Allergy Verified 02/25/20 17:24 Visit Medications: Current Medications Amlodipine Besylate (Amlodipine 5 Mg Tab) 5 mg PO BID [facility] Last Admin: 02/26/20 10:00 Dose: 5 mg Documented by: Aspirin (Aspirin Chewable 81 Mg Tab) 81 mg PO DAILY [facility] Last Admin: 02/26/20 09:58 Dose: 81 mg Documented by: Clonidine (Clonidine 0.1 Mg Tab) 0.1 mg PO Q6H PRN PRN Reason: Systolic BP > 180 Last Admin: 02/26/20 05:10 Dose: 0.1 mg Documented by: Dextrose/Water (Dextrose 50% Abboject 50 Ml Syringe) 25 gm SLOW IVP PRN PRN PRN Reason: Hypoglycemia Epoetin Gabriel-epbx (Epoetin Gabriel-Epbx (Esrd) 10,000 Unit/Ml Vial) 10,000 unit IVP MoWeFr [facility] Last Admin: 02/26/20 00:09 Dose: Not Given Documented by: Glucagon (Glucagon 1 Mg/Ml Vial) 1 mg IM PRN PRN PRN Reason: Hypoglycemia Heparin Sodium (Porcine) (Heparin 5,000 Units/Ml Vial) 5,000 units SC TID [facility] Last Admin: 02/26/20 10:00 Dose: 5,000 units Documented by: Hydralazine HCl (Hydralazine 20 Mg/Ml Vial) 10 mg SLOW IVP Q4H PRN PRN Reason: SBP Greater Than 180 Hydralazine HCl (Hydralazine 25 Mg Tab) 25 mg PO TID [facility] Last Admin: 02/26/20 09:58 Dose: 25 mg Documented by: Dextrose/Water (D5w) 1,000 mls @ 0 mls/hr IV .Q0M PRN PRN Reason: Hypoglycemia Insulin Human Lispro (Humalog 300 Units/3 Ml Vial) 0 units SC .MILD SLIDING SCALE PRN PRN Reason: Mild Correctional Scale Last Admin: 02/26/20 12:11 Dose: 2 units Documented by: Insulin Human Lispro (Humalog 300 Units/3 Ml Vial) 0 units SC .BEDTIME SLIDING SC PRN PRN Reason: Bedtime Correctional Scale Levothyroxine Sodium (Levothyroxine Sodium 112 Mcg Tab) 112 mcg PO 0600 [facility] Last Admin: 02/26/20 05:10 Dose: 112 mcg Documented by: Nitroglycerin (Nitroglycerin 0.4 Mg Tab (25 Tab Bottle)) 0.4 mg SL Q5MIN PRN PRN Reason: Chest Pain Read Ppd Test Site 0 each PO 1700 [facility] Stop: 02/28/20 17:01 Vital Signs & Weight: Vital Signs Temp Pulse Resp BP Pulse Ox 02/26/20 12:17 98.3 F 16 L 16 171/78 H 95 02/26/20 10:05 87 190/91 H 02/26/20 07:57 97.6 F 80 17 180/84 H 97 02/26/20 04:00 97.5 F L 80 20 193/88 H 92 L Weight 373 lb 7.409 oz - Physical Exam General: alert & oriented x3, no apparent distress HEENT: mucus membranes moist Neck: supple neck, no JVD/HJR Cardiac: regular rate and rhythm, no murmur Lungs: decreased breath sounds Neuro: grossly intact Abdomen: ascites, other (morbidly obese) Extremities: other: (3+ BLE pitting edema) Skin: other (healing blisters to BLE, trialysis catheter to right groin area) - Labs Result Diagrams: 02/26/20 04:27 02/26/20 04:27 Troponin/CKMB CK-MB (CK-2) 6.8 ng/mL (0-6.6) H* 02/25/20 17:22 Troponin I 0.061 ng/mL (< 0.028) H 02/25/20 17:22 - EKG Interpretation EKG: sinus rhythm - Assessment/Plan Assessment/Plan: 1. End-stage renal disease: he had a trialysis catheter placed to his right groin yesterday, he will undergo dialysis today, waiting for Nephrology dialysis recommendations. 2. History in the past of possible congestive heart failure: His EKG shows no acute changes, he did have 4 beats of NSVT early this morning, the patient was asymptomatic. His elevated cardiac enzymes are more than likely r/t ESRD as well as increased volume fluid overload. His echocardiogram showed EF 50-55%, moderately to severely dilated left atrium at 5.17 cm, trace tricuspid regurgitation. 3. Coronary artery disease: He had a cardiac catheterization in [address] Stacy that showed moderate-severe coronary artery disease to the mid LAD with a 7mm area of 55% stenosis. Would recommend cardiac catheterization with Dr. Stacy once patient has been diuresed d/t chest pain. Hypertension: Will re-evaluate after patient has had dialysis, continue Hydralazine Pt. seen and eval. by me. i agree with the A/p by the BO[employer]ER [employer]. we have discussed the pt. and plan. gianni
--- NOTE | 2020-02-26 17:03 | PRG ---
DATE OF SERVICE: 02/26/2020 SUBJECTIVE: Patient was seen and examined at bedside and overnight events noted. Patient denies any shortness of breath or chest pain or palpitation. No history of nausea or vomiting or diarrhea or fever or chills or cramps. OBJECTIVE: GENERAL: This is a morbidly obese male, in no apparent distress. VITAL SIGNS: Temperature 98.7. Heart rate 75. Respiratory rate 18. Blood pressure 187/101. HEENT: Atraumatic, normocephalic. Oral mucosa is moist. NECK: Supple. CARDIOVASCULAR: S1, S2 heard. Rate and rhythm regular. RESPIRATORY: Clear to auscultation. GASTROINTESTINAL: Abdomen is soft. MUSCULOSKELETAL: No tenderness. No edema. DERMATOLOGIC: No skin rash. NEUROLOGIC: Alert and awake and oriented x3. No focal neurologic deficits. Moving all the extremities. PSYCHIATRIC: Mood and affect normal. LABORATORY DATA: Potassium 3.4, BUN is 37, and creatinine is 5.2. ASSESSMENT AND PLAN: 1. End-stage renal disease, started on hemodialysis during this admission. We will continue on dialysis. Plan to have dialysis for 3 hours today with ultrafiltration as tolerated. 2. Edema. We will remove fluid with dialysis. 3. Anemia of chronic disease. 4. Diabetic nephropathy. 5. Morbid obesity. Plan to continue on dialysis and remove fluid with dialysis as tolerated. Follow with Case Management for outpatient placement. Job ID: [id number]
[2020-02-26 19:22] LABS: Bacteria/HPF None Seen HPF (None Seen); Bilirubin Negative (Negative); Blood, Urine Trace (Negative); Clarity Clear (Clear); Glucose, Urine (Dipstick) 500 mg/dL (Negative); Ketone, Urine Trace mg/dL (Negative); Leukocyte Negative Leu/uL (Negative); Nitrite Negative (Negative); Protein, Urine (Dipstick) Greater than 600 mg/dL (Neg-Trace); RBC/HPF 0-3 HPF (0-3); Specific Gravity, Urine 1.025 (1.002-1.036); Squamous Epithelial 0-3 HPF (0-3); Urobilinogen Normal mg/dL (Less than 2); WBC/HPF 0-3 HPF (0-3); pH, Urine 6.5 (5.0-9.0)
[2020-02-26] MEDS ORDERED: Calcium Carbonate 500 MG ChewTAB PO PRN (21:20)
[2020-02-26] MEDS ORDERED: Albuterol Sulfate 2.5 mg/3 ml Neb NEB PRN (23:07)
[2020-02-26] MEDS: Guaifenesin DM 100-10/5 ML UDCUP PO PRN (23:18)
[2020-02-27] MEDS: Levothyroxine Sodium 112 MCG TAB PO SCH (05:25)
[2020-02-27 07:09] LABS: #Eosinphils 0.2 thou/uL (0.0-0.7); #Monocytes 0.6 thou/uL (0.11-0.59); #Neutrophils 2.8 thou/uL (1.40-6.50); %Basophils 0.7 % (0.0-1.0); %Lymphocytes 21.3 % (21.0-51.0); %Monocytes 13.3 % (0.0-10.0); %Neutrophils 59.8 % (42.0-75.0); Hemoglobin 8.2 g/dL (14.0-18.0); Mean Corpuscular HGB CONC 33.4 g/dL (32.0-36.0); Mean Corpuscular Hemoglobin 32.2 pg (27.0-31.0); Mean Corpuscular Volume 96.3 fL (78.0-98.0); Mean Platelet Volume 9.6 fL (7.4-10.4); Platelet Count 141 thou/uL (130-400); RBC Distribution Width 14.2 % (11.5-14.5); Red Blood Cell (RBC) Count 2.55 mill/uL (4.70-6.10); White Blood Cell (WBC) Count 4.7 thou/uL (4.8-10.8)
[2020-02-27 07:30] LABS: ALT (SGPT) 14 U/L (8-55); AST (SGOT) 23 U/L (5-34); Albumin 1.9 g/dL (3.5-5.0); Alkaline Phosphatase 77 U/L (40-110); Anion Gap 11 mmol/L (10-20); BUN (Urea Nitrogen) 25 mg/dL (8.9-20.6); Bilirubin, Total 0.2 mg/dL (0.2-1.2); Calc. Creatinine Clearance 54 mL/min (70-130); Calcium 7.5 mg/dL (7.8-10.44); Carbon Dioxide 26 mmol/L (22-29); Chloride 110 mmol/L (98-107); Globulin 2.7 g/dL (2.4-3.5); Glucose 141 mg/dL (70-105); Potassium 3.4 mmol/L (3.5-5.1); Protein, Total 4.6 g/dL (6.0-8.3); Sodium 144 mmol/L (136-145)
[2020-02-27] MEDS: Amlodipine 5 MG TAB PO SCH ×2 (09:21→22:01)
[2020-02-27] MEDS: Aspirin Chewable 81 MG TAB PO SCH (09:21)
[2020-02-27] MEDS: Heparin 5,000 UNITS/ML VIAL SC SCH ×3 (09:21→22:01)
[2020-02-27] MEDS: hydrALAZINE 25 MG TAB PO SCH ×3 (09:24→22:01)
--- NOTE | 2020-02-27 11:12 | PDOC.HOSPP ---
- Subjective Encounter Date: 02/27/20 Encounter Time: 11:10 Subjective: No overnight events. Patient endorses R calf pain today which is new. Continues to endorse mild SOB. Feels as though some of the fluid removed thorugh dialysis has improved. Deneis chest pain, abdominal pain. Chart and medications reviewed. - Objective Vital Signs & Weight: Vital Signs (12 hours) Temp Pulse Resp BP BP Pulse Ox 02/27/20 09:21 79 205/79 H 02/27/20 07:48 97.7 F 71 17 194/90 H 95 02/27/20 05:22 97.7 F 70 16 141/85 H 96 02/27/20 01:13 97 02/27/20 01:11 78 177/86 H 02/27/20 00:18 79 16 94 L Weight Weight 368 lb 2.751 oz I&O: 02/26/20 02/27/20 02/28/20 06:59 06:59 06:59 Intake Total 1200 Output Total 150 250 Balance -150 950 Result Diagrams: 02/27/20 06:40 02/27/20 06:40 Additional Labs: Accuchecks 02/27/20 02/27/20 02/26/20 10:51 05:19 19:32 POC Glucose 154 H 130 H 179 H 02/26/20 02/26/20 18:36 11:07 POC Glucose 142 H 155 H Hospitalist ROS - Review of Systems Constitutional: denies: fever, chills, sweats Eyes: denies: vision change ENT: denies: nose congestion, throat pain Respiratory: reports: shortness of breath. denies: cough, SOB with excertion Cardiovascular: denies: chest pain, palpitations, orthopnea, light headedness Gastrointestinal: denies: nausea, vomiting, abdominal pain, diarrhea, constip ation, melena, hematochezia Genitourinary: denies: dysuria, frequency, incontinence, hematuria Musculoskeletal: reports: leg pain. denies: neck pain, shoulder pain, arm pain, back pain, hand pain, foot pain, other Skin: denies: rash, lesions, daquan, bruising, other Neurological: denies: weakness, numbness - Medication Medications: Active Medications Generic Name Dose Route Start Last Admin Trade Name Freq PRN Reason Stop Dose Admin Albuterol Sulfate 2.5 mg 02/26/20 23:07 02/27/20 00:18 Albuterol Sulfate 2.5 Mg/3 Ml Neb NEB 2.5 mg Q6HR PRN Administration SOB &/or Wheezing Amlodipine Besylate 5 mg 02/25/20 21:00 02/27/20 09:21 Amlodipine 5 Mg Tab PO 5 mg BID SARA Administration Aspirin 81 mg 02/26/20 09:00 02/27/20 09:21 Aspirin Chewable 81 Mg Tab PO 81 mg DAILY SARA Administration Calcium Carbonate 1,000 mg 02/26/20 21:20 02/26/20 21:27 Calcium Carbonate 500 Mg Chewtab PO 1,000 mg Q4H PRN Administration Heartburn or Indigestion Clonidine 0.1 mg 02/26/20 04:42 02/26/20 05:10 Clonidine 0.1 Mg Tab PO 0.1 mg Q6H PRN Administration Systolic BP > 180 Epoetin Gabriel-epbx 10,000 unit 02/25/20 18:19 02/26/20 00:09 Epoetin Gabriel-Epbx (Esrd) 10,000 Unit/Ml Vial IVP Not Given MoWeFr [facility]1983 Guaifenesin/Dextromethorphan 15 ml 02/26/20 23:04 02/26/20 23:18 Guaifenesin Dm 100-10/5 Ml Udcup PO 15 ml Q4H PRN Administration Cough Heparin Sodium (Porcine) 5,000 units 02/25/20 15:00 02/27/20 09:21 Heparin 5,000 Units/Ml Vial SC 5,000 units TID SARA Administration Hydralazine HCl 25 mg 02/25/20 15:00 02/27/20 09:24 Hydralazine 25 Mg Tab PO 25 mg TID SARA Administration Insulin Human Lispro 0 units 02/26/20 01:49 02/26/20 12:11 Humalog 300 Units/3 Ml Vial SC 2 units .MILD SLIDING SCALE PRN Administration Mild Correctional Scale Levothyroxine Sodium 112 mcg 02/26/20 06:00 02/27/20 05:25 Levothyroxine Sodium 112 Mcg Tab PO 112 mcg 0600 SARA Administration - Exam General Appearance: NAD, awake alert Eye: PERRL, anicteric sclera ENT: normocephalic atraumatic, no oropharyngeal lesions, moist mucosa Neck: supple, symmetric, no thyromegaly, no lymphadenopathy, no carotid bruit, JVD Heart: RRR, no murmur, no gallops, no rubs, normal peripheral pulses Respiratory: normal chest expansion, no tachypnea Respiratory - other findings: crackles at bases Gastrointestinal: soft, non-tender, non-distended, normal bowel sounds, no palpable masses, no hepatomegaly, no splenomegaly, no bruit Extremities: 2+ LE edema Extremities - other findings: anasarca with pitting edema up to elbow Skin: normal turgor, no lesions, no rashes Neurological: cranial nerve grossly intact, normal sensation to touch, no weakness, no focal deficits, no new deficit Musculoskeletal: normal tone, normal strength, no muscle wasting Psychiatric: normal affect, normal behavior, A&O x 3 Hosp A/P - Plan 44-year-old male with past medical history of end-stage renal disease, hypertension, CHF with diastolic dysfunction, hypertension, hyperlipidemia, type 2 diabetes mellitus, GERD, sleep apnea who presents with acute fluid overload causing shortness of breath requiring dialysis. Congestive Heart Failure and Fluid Overload 44-year-old male with fluid overload. Last echocardiogram was done in 2017 which showed diastolic dysfunction. At that time unable to assess EF due to patient's body habitus. Patient impressively edematous with pitting edema up to his elbows. Chest x-ray showed cardiomegaly and bilateral infiltrates left wo rse than right. BNP significantly elevated at 1761. Patient short of breath with orthopnea but maintaining oxygen saturation on room air. Patient underwent dialysis overnight to remove some of the fluid. Echocardiogram pending. Cardiology is following, with possible plans for heart cath once pat ient's fluid status has improved. Plan Echocardiogram pending I/O, Daily weights -Continue dialysis -Nephrology following Cardiology following Acute renal failure superimposed on chronic kidney disease Patient with BUNs/CR 40/6.05. Baseline appears to be somewhere around 5. Patient reports he has been making smaller and smaller amounts of urine. Has received 40 mg of IV Lasix x2 in the emergency room and has had no urine output yet. Patient has extensive edema up to his elbows, and was started on dialysis by Dr. Fournier. Temporary dialysis catheter was placed by Dr. Hills. Patient's fluid status much improved this morning with plans for repeat dialysis session today. BUN/CR 37/5.22. Plan Dialysis Trend kidney function Avoid nephrotoxic agents when possible Nephrology following Hypertensive emergency Patient in hypertensive emergency with significantly elevated blood pressures up into the 270 systolic. Patient denies headache or visual changes. Does have elevated troponin of 0.077 as well as ARF superimposed on CKD. Patient received 3 sublingual nitros, p.o. hydralazine, IV hydralazine in the emergency room with reduction in his blood pressure down to the 200s. Patient's blood pressure was slowly reduced and is now in the 180s. Plan As needed hydralazine IV for BPs over 200 Restart patient's home hydralazine, clonidine, amlodipine Elevated troponin Troponin mildly elevated to 0.077, 0.077, 0.061. Suspect troponin leak in setting of CHF exacerbation and CKD. Patient denies chest pain. EKG with no ischemic changes. Patient did received 325 mg of aspirin in the emergency room and is on a daily aspirin and Plavix. Cardiology following. Plan Troponins flat Telemetry monitoring Continue daily aspirin Plavix Monitor for any symptoms Elevated D-dimer D-dimer elevated to 5.37. Patient has a history of pulmonary embolisms. Patient unable to undergo CTA PE protocol secondary to severe CKD. Suspect patient shortness of breath likely related to his acute CHF exacerbation and edema rather than pulmonary embolism. If patient's respiratory status does not improve once fluid is removed will consider VQ scan. Patient on 01/27 endorsed R calf pain. Will obtain LE US to check for DVT. Plan -LE US Consider VQ scan if respiratory status does not improve Hyperlipidemia Continue home statin Type 2 diabetes mellitus Patient on insulin therapy since his 20s. Patient reports however that recently he has not been taking his insulin injectable medication because his blood sugars have been low. Will obtain hemoglobin A1c and place patient on insulin sliding scale. Plan Hemoglobin A1c ISS ACHS glucose checks Hypothyroidism History of hypothyroidism. Patient has history of noncompliance with medications. TSH 4.9, will restart home levothyroxine. GERD History of GERD. We will continue pantoprazole. Obstructive sleep apnea History of ARDEN with home CPAP. Will make CPAP available for patient in the hospital. DVT prophylaxisSQ heparin Full codeMDM is patient's Case discussed with attending physician, Dr. Herrmann.
[2020-02-27] MEDS: HumaLOG 300 UNITS/3 ML VIAL SC PRN (11:24)
--- NOTE | 2020-02-27 12:27 | ULT ---
EXAM: Right lower extremity venous Doppler US HISTORY: Right lower extremity edema and pain FINDINGS: Grayscale, color-flow, Doppler evaluation, spectral analysis of the right lower extremity venous stru ctures is performed with 2-D imaging. The right common femoral, superficial femoral, popliteal, posterior tibial, proximal greater saphenous and profunda femoral veins are imaged. There is normal luminal compressibility, flow, and augmentation the visualized deep venous structures of the right lower extremity. IMPRESSION: No evidence of a deep vein thrombosis in the right lower extremity.
--- NOTE | 2020-02-27 16:15 | PDOC.CPN ---
- Subjective Date: 02/27/20 Time: 10:15 Interval history: No overnight events. Patient had dialysis yesterday. His BP still remains elevated. He states the tightness in his chest is getting better each day, he denies any chest pain or shortness of breath at this time. - Review of Systems General: denies: fever/chills, weight/appetite/sleep changes, night sweats, fatigue Respiratory: denies: cough, congestion, shortness of breath, exercise intolerance Cardiovascular: denies: chest pain, palpitation, edema, paroxysmal nocturnal dyspnea, orthopnea Gastrointestinal: denies: nausea, vomiting, diarrhea, constipation, abd pain, GI bleeding Musculoskeletal: reports: pain (pain in RLE), swelling Neurological: denies: numbness, syncope, seizure, weakness - Objective Allergies/Adverse Reactions: Allergies Allergy/AdvReac Type Severity Reaction Status Date / Time No Known Drug Allergies Allergy Verified 02/25/20 17:24 Visit Medications: Current Medications Albuterol Sulfate (Albuterol Sulfate 2.5 Mg/3 Ml Neb) 2.5 mg NEB Q6HR PRN PRN Reason: SOB &/or Wheezing Last Admin: 02/27/20 00:18 Dose: 2.5 mg Documented by: Amlodipine Besylate (Amlodipine 5 Mg Tab) 5 mg PO BID [facility] Last Admin: 02/27/20 09:21 Dose: 5 mg Documented by: Aspirin (Aspirin Chewable 81 Mg Tab) 81 mg PO DAILY [facility] Last Admin: 02/27/20 09:21 Dose: 81 mg Documented by: Calcium Carbonate (Calcium Carbonate 500 Mg Chewtab) 1,000 mg PO Q4H PRN PRN Reason: Heartburn or Indigestion Last Admin: 02/26/20 21:27 Dose: 1,000 mg Documented by: Clonidine (Clonidine 0.1 Mg Tab) 0.1 mg PO Q6H PRN PRN Reason: Systolic BP > 180 Last Admin: 02/26/20 05:10 Dose: 0.1 mg Documented by: Dextrose/Water (Dextrose 50% Abboject 50 Ml Syringe) 25 gm SLOW IVP PRN PRN PRN Reason: Hypoglycemia Epoetin Gabriel-epbx (Epoetin Gabriel-Epbx (Esrd) 10,000 Unit/Ml Vial) 10,000 unit IVP MoWeFr [facility] Last Admin: 02/26/20 00:09 Dose: Not Given Documented by: Glucagon (Glucagon 1 Mg/Ml Vial) 1 mg IM PRN PRN PRN Reason: Hypoglycemia Guaifenesin/Dextromethorphan (Guaifenesin Dm 100-10/5 Ml Udcup) 15 ml PO Q4H PRN PRN Reason: Cough Last Admin: 02/26/20 23:18 Dose: 15 ml Documented by: Heparin Sodium (Porcine) (Heparin 5,000 Units/Ml Vial) 5,000 units SC TID [facility] Last Admin: 02/27/20 09:21 Dose: 5,000 units Documented by: Hydralazine HCl (Hydralazine 20 Mg/Ml Vial) 10 mg SLOW IVP Q4H PRN PRN Reason: SBP Greater Than 180 Hydralazine HCl (Hydralazine 25 Mg Tab) 25 mg PO TID [facility] Last Admin: 02/27/20 09:24 Dose: 25 mg Documented by: Dextrose/Water (D5w) 1,000 mls @ 0 mls/hr IV .Q0M PRN PRN Reason: Hypoglycemia Insulin Human Lispro (Humalog 300 Units/3 Ml Vial) 0 units SC .MILD SLIDING SCALE PRN PRN Reason: Mild Correctional Scale Last Admin: 02/27/20 11:24 Dose: 2 units Documented by: Insulin Human Lispro (Humalog 300 Units/3 Ml Vial) 0 units SC .BEDTIME SLIDING SC PRN PRN Reason: Bedtime Correctional Scale Levothyroxine Sodium (Levothyroxine Sodium 112 Mcg Tab) 112 mcg PO 0600 [facility] Last Admin: 02/27/20 05:25 Dose: 112 mcg Documented by: Nitroglycerin (Nitroglycerin 0.4 Mg Tab (25 Tab Bottle)) 0.4 mg SL Q5MIN PRN PRN Reason: Chest Pain Read Ppd Test Site 0 each PO 1700 [facility] Stop: 02/28/20 17:01 Vital Signs & Weight: Vital Signs Temp Pulse Resp BP BP Pulse Ox 02/27/20 11:28 97.9 F 75 17 180/85 H 94 L 02/27/20 09:21 79 205/79 H 02/27/20 07:48 97.7 F 71 17 194/90 H 95 02/27/20 05:22 97.7 F 70 16 141/85 H 96 Weight 368 lb 2.751 oz - Physical Exam General: alert & oriented x3 HEENT: mucus membranes moist Neck: no masses, no bruit Cardiac: regular rate and rhythm Lungs: decreased breath sounds Neuro: grossly intact Abdomen: active bowel sounds, soft, distended, ascites Extremities: other: (3+ pitting edema to BLE) Skin: rash (rash to BLE) Musculoskeletal: pain in joint (c/o pain in right BLE), fluid collection - Labs Result Diagrams: 02/27/20 06:40 02/27/20 06:40 Troponin/CKMB CK-MB (CK-2) 6.8 ng/mL (0-6.6) H* 02/25/20 17:22 Troponin I 0.061 ng/mL (< 0.028) H 02/25/20 17:22 - EKG Interpretation EKG Method: Telemetry EKG: sinus rhythm - Assessment/Plan Assessment/Plan: 1. End-stage renal disease: he had a trialysis catheter placed to his right groin yesterday, he had dialysis yesterday. Edema still present. 2. History in the past of possible congestive heart failure: His EKG shows no acute changes, His elevated cardiac enzymes are more than likely r/t ESRD as well as increased volume fluid overload. His echocardiogram showed EF 50-55%, moderately to severely dilated left atrium at 5.17 cm, trace tricuspid regurgitation. 3. Coronary artery disease: He had a cardiac catheterization in [address] Stacy that showed moderate-severe coronary artery disease to the mid LAD with a 7mm area of 55% stenosis. Would recommend cardiac catheterization with Dr. Stacy once patient has been diuresed d/t chest pain and history of CAD. 4. Pain to RLE: His venous doppler on his right lower extremity was negative for DVT. 5. Hypertension: BP remains elevated after dialysis, to be controlled by nephrology. Continue Hydralazine. Pt. seen and eval. by me. I agree with the A/P by the BOARD MEMBER. Chest clear anteriorly. RRR. Continue dialysis. gjm
--- NOTE | 2020-02-27 16:18 | PRG ---
DATE OF SERVICE: 02/27/2020 SUBJECTIVE: Patient was seen and examined at bedside and overnight events noted. Patient denies any shortness of breath or chest pain or palpitation. No history of nausea or vomiting or diarrhea or fever or chills or cramps. OBJECTIVE: General: This is an obese male, in no apparent distress. Vital Signs: Temperature 97.9. Heart Rate 75. Respiratory rate 18. Blood pressure 180/85. HEENT: Atraumatic, normocephalic. Oral mucosa is moist. Neck: Supple. Cardiovascular: S1, S2 heard. Rate and rhythm regular. Respiratory: Clear to auscultation. Gastrointestinal: Abdomen is soft. Musculoskeletal: No tenderness. No edema. Dermatologic: No skin rash. Neurologic: Alert and awake and oriented x3. No focal neurologic deficits. Moving all the extremities. Psychiatric: Mood and affect normal. LABORATORY DATA: Potassium 3.4, BUN is 25, creatinine is 4.1. ASSESSMENT AND PLAN: 1. End-stage renal disease, on hemodialysis. 2. Edema, remove fluid. 3. Anemia of chronic disease. 4. Diabetic nephropathy. 5. Morbid obesity. 6. Continue dialysis as tolerated. Job ID: [id number]
[2020-02-27] MEDS ORDERED: READ PPD TEST SITE PO SCH (17:00)
[2020-02-28] MEDS: Levothyroxine Sodium 112 MCG TAB PO SCH (05:02)
[2020-02-28 05:21] LABS: #Eosinphils 0.3 thou/uL (0.0-0.7); #Lymphocytes 1.4 thou/uL (1.20-3.40); #Monocytes 0.7 thou/uL (0.11-0.59); #Neutrophils 3.4 thou/uL (1.40-6.50); %Basophils 0.5 % (0.0-1.0); %Eosinophils 4.5 % (0.0-10.0); %Lymphocytes 24.6 % (21.0-51.0); %Monocytes 12.6 % (0.0-10.0); %Neutrophils 57.8 % (42.0-75.0); Hemoglobin 8.9 g/dL (14.0-18.0); Mean Corpuscular HGB CONC 32.8 g/dL (32.0-36.0); Mean Corpuscular Hemoglobin 31.8 pg (27.0-31.0); Mean Corpuscular Volume 96.9 fL (78.0-98.0); Mean Platelet Volume 9.7 fL (7.4-10.4); Platelet Count 171 thou/uL (130-400); RBC Distribution Width 14.2 % (11.5-14.5); White Blood Cell (WBC) Count 5.9 thou/uL (4.8-10.8)
[2020-02-28 05:40] LABS: ALT (SGPT) 15 U/L (8-55); AST (SGOT) 25 U/L (5-34); Albumin 2.1 g/dL (3.5-5.0); Alkaline Phosphatase 84 U/L (40-110); Anion Gap 12 mmol/L (10-20); BUN (Urea Nitrogen) 26 mg/dL (8.9-20.6); Bilirubin, Total 0.3 mg/dL (0.2-1.2); Calc. Creatinine Clearance 51 mL/min (70-130); Calcium 7.7 mg/dL (7.8-10.44); Carbon Dioxide 25 mmol/L (22-29); Chloride 108 mmol/L (98-107); Globulin 2.8 g/dL (2.4-3.5); Glucose 148 mg/dL (70-105); Potassium 3.5 mmol/L (3.5-5.1); Protein, Total 4.9 g/dL (6.0-8.3); Sodium 141 mmol/L (136-145)
[2020-02-28] MEDS: Aspirin Chewable 81 MG TAB PO SCH (08:24)
[2020-02-28] MEDS: hydrALAZINE 25 MG TAB PO SCH ×3 (08:25→21:34)
[2020-02-28] MEDS: Amlodipine 5 MG TAB PO SCH ×2 (08:25→21:33)
[2020-02-28] MEDS: Heparin 5,000 UNITS/ML VIAL SC SCH ×3 (08:26→21:34)
--- NOTE | 2020-02-28 08:32 | PRG ---
DATE OF SERVICE: 02/28/2020 SUBJECTIVE: A 44-year-old male, being seen for CKD. The patient denies any nausea, vomiting, or chest pain. OBJECTIVE: GENERAL: The patient is awake and alert. VITAL SIGNS: Afebrile, pulse 75, breathing at 16, blood pressure 171/82. HEENT: Head normocephalic and atraumatic. Eyes intact, no ulcers. Nose intact, no ulcers. Ears intact, no ulcers. NECK: Supple. No JVD. CHEST: Symmetrical and clear. CARDIOVASCULAR: Shows S1 and S2, no rub, no murmur. GASTROINTESTINAL: Abdomen is soft, bowel sounds positive. EXTREMITIES: Show no edema or ulcers. SKIN: Shows no rash or petechiae. MUSCULOSKELETAL: Shows no joint swelling or stiffness. GENITOURINARY: Shows no Boss or CVA tenderness. NEUROLOGIC: Motor intact. Cranial nerves intact. LABORATORY DATA: Reviewed. ASSESSMENT AND PLAN: 1. Stage 6 chronic kidney disease, plan dialysis. 2. Hypertension, stable. 3. Anemia, stable. 4. Medication based on GFR appropriate. Job ID: [id number]
[2020-02-28] MEDS: HumaLOG 300 UNITS/3 ML VIAL SC PRN (12:15)
--- NOTE | 2020-02-28 16:10 | PDOC.HOSPP ---
- Subjective Encounter Date: 02/28/20 Subjective: Doing okay in general. No specific new complaints. Tolerated dialysis. - Objective Vital Signs & Weight: Vital Signs (12 hours) Temp Pulse Pulse Pulse Pulse Resp BP 02/28/20 12:15 97.7 F 79 17 02/28/20 10:27 83 96 96 02/28/20 08:25 77 180/85 H 02/28/20 07:40 98.5 F 75 17 BP BP BP BP Pulse Ox Pulse Ox Pulse Ox 02/28/20 12:15 179/86 H 95 02/28/20 10:27 195/94 H 207/108 H 195/104 H 94 L 94 L 02/28/20 08:25 02/28/20 07:40 171/82 H 96 Pulse Ox 02/28/20 12:15 02/28/20 10:27 94 L 02/28/20 08:25 02/28/20 07:40 Weight Weight 368 lb 6.279 oz I&O: 02/27/20 02/28/20 02/29/20 06:59 06:59 06:59 Intake Total 1200 1080 Output Total 250 200 Balance 950 880 Result Diagrams: 02/28/20 04:50 02/28/20 04:50 Additional Labs: Accuchecks 02/28/20 02/28/20 02/27/20 10:48 06:03 20:25 POC Glucose 162 H 128 H 175 H 02/27/20 16:15 POC Glucose 151 H Hospitalist ROS - Medication Medications: Active Medications Generic Name Dose Route Start Last Admin Trade Name Freq PRN Reason Stop Dose Admin Albuterol Sulfate 2.5 mg 02/26/20 23:07 02/27/20 00:18 Albuterol Sulfate 2.5 Mg/3 Ml Neb NEB 2.5 mg Q6HR PRN Administration SOB &/or Wheezing Amlodipine Besylate 5 mg 02/25/20 21:00 02/28/20 08:25 Amlodipine 5 Mg Tab PO 5 mg BID SARA Administration Aspirin 81 mg 02/26/20 09:00 02/28/20 08:24 Aspirin Chewable 81 Mg Tab PO 81 mg DAILY SARA Administration Calcium Carbonate 1,000 mg 02/26/20 21:20 02/26/20 21:27 Calcium Carbonate 500 Mg Chewtab PO 1,000 mg Q4H PRN Administration Heartburn or Indigestion Clonidine 0.1 mg 02/26/20 04:42 02/26/20 05:10 Clonidine 0.1 Mg Tab PO 0.1 mg Q6H PRN Administration Systolic BP > 180 Epoetin Gabriel-epbx 10,000 unit 02/25/20 18:19 02/26/20 00:09 Epoetin Gabriel-Epbx (Esrd) 10,000 Unit/Ml Vial IVP Not Given MoWeFr [facility] Guaifenesin/Dextromethorphan 15 ml 02/26/20 23:04 02/26/20 23:18 Guaifenesin Dm 100-10/5 Ml Udcup PO 15 ml Q4H PRN Administration Cough Heparin Sodium (Porcine) 5,000 units 02/25/20 15:00 02/28/20 08:26 Heparin 5,000 Units/Ml Vial SC 5,000 units TID ASRA Administration Hydralazine HCl 25 mg 02/25/20 15:00 02/28/20 08:25 Hydralazine 25 Mg Tab PO 25 mg TID SARA Administration Insulin Human Lispro 0 units 02/26/20 01:49 02/28/20 12:15 Humalog 300 Units/3 Ml Vial SC 2 units .MILD SLIDING SCALE PRN Administration Mild Correctional Scale Levothyroxine Sodium 112 mcg 02/26/20 06:00 02/28/20 05:02 Levothyroxine Sodium 112 Mcg Tab PO 112 mcg 0600 SARA Administration - Exam General Appearance: NAD, awake alert General - other findings: Morbidly obese Heart: RRR, no murmur, no gallops, no rubs, normal peripheral pulses Respiratory: CTAB, no wheezes, no rales, no ronchi, normal chest expansion, no tachypnea, normal percussion Gastrointestinal: soft, non-tender, non-distended, normal bowel sounds, no palpable masses, no hepatomegaly, no splenomegaly, no bruit Extremities - other findings: Diffuse pitting edema Skin - other findings: Pitting edema up to the chest. Neurological: no focal deficits Musculoskeletal: generalized weakness Psychiatric: normal affect, normal behavior, A&O x 3 Hosp A/P (1) Acute worsening of stage 4 chronic kidney disease Code(s): N18.4 - CHRONIC KIDNEY DISEASE, STAGE 4 (SEVERE) Status: Acute (2) Volume overload Code(s): E87.70 - FLUID OVERLOAD, UNSPECIFIED Status: Acute (3) CAD (coronary artery disease) Code(s): I25.10 - ATHSCL HEART DISEASE OF [place] CORONARY ARTERY W/O ANG PCTRS Status: Chronic (4) DM type 2 (diabetes mellitus, type 2) Status: Chronic (5) HLD (hyperlipidemia) Code(s): E78.5 - HYPERLIPIDEMIA, UNSPECIFIED Status: Chronic (6) Hypertension Code(s): I10 - ESSENTIAL (PRIMARY) HYPERTENSION Status: Chronic (7) Hypothyroidism Code(s): E03.9 - HYPOTHYROIDISM, UNSPECIFIED Status: Chronic (8) Morbid obesity Code(s): E66.01 - MORBID (SEVERE) OBESITY DUE TO EXCESS CALORIES Status: Chronic (9) ARDEN (obstructive sleep apnea) Code(s): G47.33 - OBSTRUCTIVE SLEEP APNEA (ADULT) (PEDIATRIC) Status: Chronic (10) Acute on chronic diastolic CHF (congestive heart failure) Code(s): I50.33 - ACUTE ON CHRONIC DIASTOLIC (CONGESTIVE) HEART FAILURE S tatus: Acute - Plan 44-year-old male with past medical history of end-stage renal disease, hypertension, CHF with diastolic dysfunction, hypertension, hyperlipidemia, type 2 diabetes mellitus, GERD, sleep apnea who presents with acute fluid overload causing shortness of breath requiring dialysis. Acute on chronic congestive Heart Failure and Fluid Overload 44-year-old male with fluid overload. Last echocardiogram was done in 2017 which showed diastolic dysfunction. At that time unable to assess EF due to patient's body habitus. Patient impressively edematous with pitting edema up to his elbows. Chest x-ray showed cardiomegaly and bilateral infiltrates left worse than right. BNP significantly elevated at 1761. Patient short of breath with orthopnea but maintaining oxygen saturation on room air. Patient underwent dialysis overnight to remove some of the fluid. Echocardiogram still pending. Cardiology is following, with possible plans for heart cath once patient's fluid status has improved. Continue dialysis Nephrology following Cardiology following Acute renal failure superimposed on chronic kidney disease Patient with BUNs/CR 40/6.05. Baseline appears to be somewhere around 5. Patient reports he has been making smaller and smaller amounts of urine. Has received 40 mg of IV Lasix x2 in the emergency room and has had no urine output yet. Patient has extensive edema up to his elbows, and was started on dialysis by Dr. Fournier. Temporary dialysis catheter was placed by Dr. Hills. Patient's fluid status much improved this morning with plans for repeat dialysis session today. BUN/CR 37/5.22. Continue dialysis. Avoid nephrotoxic agents when possible Nephrology following Hypertensive emergency Patient in hypertensive emergency with significantly elevated blood pressures up into the 270 systolic. Patient denies headache or visual changes. Does have elevated troponin of 0.077 as well as ARF superimposed on CKD. Patient received 3 sublingual nitros, p.o. hydralazine, IV hydralazine in the emergency room with reduction in his blood pressure down to the 200s. Patient's blood pressure was slowly reduced and is now in the 180s. Improved somewhat after initial dialysis. Given the degree of edema even in his arms I suspect it is impossible to get an accurate blood pressure reading on him at this time. As needed hydralazine IV for BPs over 200 Restarted patient's home hydralazine, clonidine, amlodipine Elevated troponin Troponin mildly elevated to 0.077, 0.077, 0.061. Suspect troponin leak in setting of CHF exacerbation and CKD. Patient denies chest pain. EKG with no ischemic changes. Patient did received 325 mg of aspirin in the emergency room and is on a daily aspirin and Plavix. Cardiology following. Troponins flat. Telemetry monitoring. Continue daily aspirin Plavix Elevated D-dimer D-dimer elevated to 5.37. Patient has a history of pulmonary embolisms. Hal rodgers unable to undergo CTA PE protocol secondary to severe CKD. Suspect patient shortness of breath likely related to his acute CHF exacerbation and edema rather than pulmonary embolism. If patient's respiratory status does not improve once fluid is removed will consider VQ scan. Patient on 01/27 endorsed R calf pain. Ultrasound negative. Consider VQ scan if respiratory status does not improve with volume removal. Hyperlipidemia Continue home statin Type 2 diabetes mellitus Patient on insulin therapy since his 20s. Patient reports however that recently he has not been taking his insulin injectable medication because his blood sugars have been low. Will obtain hemoglobin A1c and place patient on insulin sliding scale. Hemoglobin A1c was 6.8 ISS [facility] glucose checks Hypothyroidism History of hypothyroidism. Patient has history of noncompliance with medications. TSH 4.9, will restart home levothyroxine. GERD History of GERD. We will continue pantoprazole. Obstructive sleep apnea History of ARDEN with home CPAP. Will make CPAP available for patient in the hospital. DVT prophylaxisSQ heparin Full codeMDM is patient's
[2020-02-28] MEDS: EPOETIN ALFA-EPBX (ESRD) 10,000 UNIT/ML VIAL IVP SCH (17:39)
[2020-02-29 04:32] LABS: #Eosinphils 0.2 thou/uL (0.0-0.7); #Lymphocytes 0.9 thou/uL (1.20-3.40); #Monocytes 0.6 thou/uL (0.11-0.59); #Neutrophils 2.3 thou/uL (1.40-6.50); %Basophils 0.5 % (0.0-1.0); %Eosinophils 5.9 % (0.0-10.0); %Lymphocytes 22.3 % (21.0-51.0); %Monocytes 14.7 % (0.0-10.0); %Neutrophils 56.5 % (42.0-75.0); Hemoglobin 8.1 g/dL (14.0-18.0); Mean Corpuscular HGB CONC 33.3 g/dL (32.0-36.0); Mean Corpuscular Hemoglobin 32.2 pg (27.0-31.0); Mean Corpuscular Volume 96.5 fL (78.0-98.0); Mean Platelet Volume 9.5 fL (7.4-10.4); Platelet Count 128 thou/uL (130-400); RBC Distribution Width 13.9 % (11.5-14.5); Red Blood Cell (RBC) Count 2.51 mill/uL (4.70-6.10); White Blood Cell (WBC) Count 4.1 thou/uL (4.8-10.8)
[2020-02-29 04:58] LABS: ALT (SGPT) 16 U/L (8-55); AST (SGOT) 26 U/L (5-34); Albumin 1.9 g/dL (3.5-5.0); Alkaline Phosphatase 80 U/L (40-110); Anion Gap 8 mmol/L (10-20); BUN (Urea Nitrogen) 20 mg/dL (8.9-20.6); Bilirubin, Total 0.3 mg/dL (0.2-1.2); Calc. Creatinine Clearance 64 mL/min (70-130); Calcium 7.3 mg/dL (7.8-10.44); Carbon Dioxide 29 mmol/L (22-29); Chloride 105 mmol/L (98-107); Globulin 2.6 g/dL (2.4-3.5); Glucose 146 mg/dL (70-105); Potassium 3.5 mmol/L (3.5-5.1); Protein, Total 4.5 g/dL (6.0-8.3); Sodium 138 mmol/L (136-145)
[2020-02-29] MEDS: Levothyroxine Sodium 112 MCG TAB PO SCH (05:11)
[2020-02-29] MEDS: HumaLOG 300 UNITS/3 ML VIAL SC PRN (05:42)
--- NOTE | 2020-02-29 08:04 | PRG ---
DATE OF SERVICE: 02/28/2020 SUBJECTIVE: Mr. Marlow is currently doing better. No current complaints. No chest pain or pressure noted. He is dialyzed a few times over the weekend. He is scheduled for dialysis today. OBJECTIVE: VITAL SIGNS: Blood pressure 177/81, pulse 76, temperature afebrile. LUNGS: Clear to auscultation. HEART: Regular rate and rhythm. ABDOMEN: Soft, nontender, nondistended. EXTREMITIES: No edema. PERTINENT LABORATORY DATA: Hemoglobin 8.9. Troponin negative. Creatinine 4.39. IMPRESSION: 1. Chronic renal insufficiency, now requiring dialysis. 2. Moderate coronary artery disease. 3. Diastolic dysfunction. 4. Hypertension. RECOMMENDATIONS: Mr. Marlow did undergo coronary angiography in 2017. He had moderate coronary artery disease. His troponin is negative. EKG is nonspecific. At this point, given that his symptoms have resolved, his symptoms are likely related to underlying end-stage renal disease. We will continue to follow closely with you. At this point, we would not recommend any further treatment or therapy. We would recommend an echo with Doppler to reassess his LVEF. Job ID: [id number]
[2020-02-29] MEDS: Amlodipine 5 MG TAB PO SCH ×2 (08:25→20:24)
[2020-02-29] MEDS: Heparin 5,000 UNITS/ML VIAL SC SCH ×3 (08:25→20:25)
[2020-02-29] MEDS: Aspirin Chewable 81 MG TAB PO SCH (08:25)
[2020-02-29] MEDS: hydrALAZINE 25 MG TAB PO SCH ×3 (08:26→20:24)
--- NOTE | 2020-02-29 11:36 | PRG ---
DATE OF SERVICE: 02/29/2020 SUBJECTIVE: A 44-year-old gentleman being seen for end-stage renal disease. The patient denied nausea, vomiting, or chest pain. PHYSICAL EXAMINATION: General: The patient is awake and alert. Vital Signs: Afebrile, pulse 95, breathing at 16, blood pressure 132/89. HEENT: Head normocephalic and atraumatic. Eyes intact, no ulcers. Nose intact, no ulcers. Ears intact, no ulcers. Neck: Supple. No JVD. Chest: Symmetrical and clear. Cardiovascular: Shows S1 and S2, no rub, no murmur. Gastrointestinal: Abdomen is soft, bowel sounds positive. Extremities: Show no edema or ulcers. Skin: Shows no rash or petechiae. Musculoskeletal: Shows no joint swelling or stiffness. Genitourinary: Shows no Boss or CVA tenderness. Neurologic: Motor intact. Cranial nerves intact. LABORATORY DATA: Reviewed. ASSESSMENT AND PLAN: Stage 6 chronic kidney disease, plan dialysis. Hypertension, stable. Anemia, stable. Medication based on GFR appropriate. Job ID: [id number]
[2020-02-29] MEDS ORDERED: CEFAZOLIN 2 GM in Premix Bag 1 BAG IVPB SCH (13:00)
--- NOTE | 2020-02-29 13:31 | ULT ---
LEFT UPPER EXTREMITY VENOUS DOPPLER ULTRASOUND: HISTORY: Left upper extremity edema TECHNIQUE: Grayscale color-flow and spectral Doppler imaging of the deep venous systems of the left upper extrem ity was performed FINDINGS: There is good flow, compression and normal spectral waveforms in the internal jugular, subclavian, ax illary, brachial, radial, ulnar, basilic and cephalic veins of the left upper extremity. IMPRESSION: No evidence of DVT in the left upper extremity.
--- NOTE | 2020-02-29 15:33 | PRG ---
DATE OF SERVICE: 02/29/2020 SUBJECTIVE: Mr. Marlow is doing better. He states his shortness of breath has improved. No recurrent episodes of chest pain or pressure. Vital signs; blood pressure 165/85, pulse 76, temperature 97.7. PHYSICAL EXAMINATION: Deferred. PERTINENT LABORATORY DATA: Hemoglobin 8.1, hematocrit 24.2. Creatinine 3.44. IMPRESSION: 1. Atypical chest pain. 2. Renal failure. 3. Hypertension. RECOMMENDATIONS: Mr. Marlow's status is stable. He has no recurrent episodes of chest pain. He appears to be significantly fluid overloaded with significant edema to his upper and lower extremities. He has diuresed significantly over the last several days, but appears to still be overloaded. At this point, we will continue current medical therapy. His troponins have been negative. We will continue with secondary risk factor modification and we will continue with amlodipine in addition to aspirin. We would recommend adding Coreg 3.125 one p.o. b.i.d. in addition to statin therapy. Job ID: [id number]
--- NOTE | 2020-02-29 17:26 | PDOC.HOSPP ---
- Subjective Encounter Date: 02/29/20 Subjective: Patient feels okay in general. Still very short of breath with minimal exertion. - Objective Vital Signs & Weight: Vital Signs (12 hours) Temp Pulse Pulse Pulse Resp BP BP 02/29/20 16:04 82 02/29/20 15:18 98.6 F 82 21 H 02/29/20 11:29 97.7 F 76 02/29/20 11:23 82 76 186/93 H 02/29/20 08:26 95 172/83 H 02/29/20 08:25 95 02/29/20 07:49 97.4 F L 95 18 BP BP Pulse Ox Pulse Ox 02/29/20 16:04 02/29/20 15:18 185/88 H 93 L 02/29/20 11:29 165/85 H 96 02/29/20 11:23 165/85 H 95 02/29/20 08:26 02/29/20 08:25 02/29/20 07:49 172/83 H 95 Weight Weight 366 lb 9.299 oz I&O: 02/28/20 02/29/20 03/01/20 06:59 06:59 06:59 Intake Total 1080 1200 Output Total 200 Balance 880 1200 Result Diagrams: 02/29/20 04:20 02/29/20 04:20 Additional Labs: Accuchecks 02/29/20 02/29/20 02/29/20 16:46 10:20 05:16 POC Glucose 147 H 124 H 134 H 02/28/20 20:33 POC Glucose 182 H Hospitalist ROS - Medication Medications: Active Medications Generic Name Dose Route Start Last Admin Trade Name Freq PRN Reason Stop Dose Admin Albuterol Sulfate 2.5 mg 02/26/20 23:07 02/27/20 00:18 Albuterol Sulfate 2.5 Mg/3 Ml Neb NEB 2.5 mg Q6HR PRN Administration SOB &/or Wheezing Amlodipine Besylate 5 mg 02/25/20 21:00 02/29/20 08:25 Amlodipine 5 Mg Tab PO 5 mg BID SARA Administration Aspirin 81 mg 02/26/20 09:00 02/29/20 08:25 Aspirin Chewable 81 Mg Tab PO 81 mg DAILY SARA Administration Calcium Carbonate 1,000 mg 02/26/20 21:20 02/26/20 21:27 Calcium Carbonate 500 Mg Chewtab PO 1,000 mg Q4H PRN Administration Heartburn or Indigestion Clonidine 0.1 mg 02/26/20 04:42 02/26/20 05:10 Clonidine 0.1 Mg Tab PO 0.1 mg Q6H PRN Administration Systolic BP > 180 Epoetin Gabriel-epbx 10,000 unit 02/25/20 18:19 02/28/20 17:39 Epoetin Gabriel-Epbx (Esrd) 10,000 Unit/Ml Vial IVP Not Given MoWeFr SARA Guaifenesin/Dextromethorphan 15 ml 02/26/20 23:04 02/26/20 23:18 Guaifenesin Dm 100-10/5 Ml Udcup PO 15 ml Q4H PRN Administration Cough Heparin Sodium (Porcine) 5,000 units 02/25/20 15:00 02/29/20 16:04 Heparin 5,000 Units/Ml Vial SC 5,000 units TID SARA Administration Hydralazine HCl 25 mg 02/25/20 15:00 02/29/20 16:04 Hydralazine 25 Mg Tab PO 25 mg TID SARA Administration Insulin Human Lispro 0 units 02/26/20 01:49 02/29/20 05:42 Humalog 300 Units/3 Ml Vial SC 2 units .MILD SLIDING SCALE PRN Administration Mild Correctional Scale Levothyroxine Sodium 112 mcg 02/26/20 06:00 02/29/20 05:11 Levothyroxine Sodium 112 Mcg Tab PO 112 mcg 0600 SARA Administration - Exam General Appearance: NAD, awake alert General - other findings: Morbidly obese Heart: RRR, no murmur, no gallops, no rubs, normal peripheral pulses Respiratory: CTAB, no wheezes, no rales, no ronchi, normal chest expansion, no tachypnea, normal percussion Gastrointestinal: soft, non-tender, non-distended, normal bowel sounds, no palpable masses, no hepatomegaly, no splenomegaly, no bruit Extremities - other findings: 3+ pitting edema up to the level of the abdomen and chest. Neurological: no focal deficits Musculoskeletal: generalized weakness Psychiatric: normal affect, normal behavior, A&O x 3 Hosp A/P (1) Acute worsening of stage 4 chronic kidney disease Code(s): N18.4 - CHRONIC KIDNEY DISEASE, STAGE 4 (SEVERE) Status: Acute (2) Volume overload Code(s): E87.70 - FLUID OVERLOAD, UNSPECIFIED Status: Acute (3) CAD (coronary artery disease) Code(s): I25.10 - ATHSCL HEART DISEASE OF [place] CORONARY ARTERY W/O ANG PCTRS Status: Chronic (4) DM type 2 (diabetes mellitus, type 2) Status: Chronic (5) HLD (hyperlipidemia) Code(s): E78.5 - HYPERLIPIDEMIA, UNSPECIFIED Status: Chronic (6) Hypertension Code(s): I10 - ESSENTIAL (PRIMARY) HYPERTENSION Status: Chronic (7) Hypothyroidism Code(s): E03.9 - HYPOTHYROIDISM, UNSPECIFIED Status: Chronic (8) Morbid obesity Code(s): E66.01 - MORBID (SEVERE) OBESITY DUE TO EXCESS CALORIES Status: Chronic (9) ARDEN (obstructive sleep apnea) Code(s): G47.33 - OBSTRUCTIVE SLEEP APNEA (ADULT) (PEDIATRIC) Status: Chronic (10) Acute on chronic diastolic CHF (congestive heart failure) Code(s): I50.33 - ACUTE ON CHRONIC DIASTOLIC (CONGESTIVE) HEART FAILURE Status: Acute - Plan 44-year-old male with past medical history of end-stage renal disease, hypertension, CHF with diastolic dysfunction, hypertension, hyperlipidemia, type 2 diabetes mellitus, GERD, sleep apnea who presents with acute fluid overload causing shortness of breath requiring dialysis. Acute on chronic congestive Heart Failure and Fluid Overload likely related to ESRD 44-year-old male with fluid overload. Last echocardiogram was done in 2017 which showed diastolic dysfunction. At that time unable to assess EF due to hal rodgers's body habitus. Patient impressively edematous with pitting edema up to his chest. Chest x-ray showed cardiomegaly and bilateral infiltrates left worse than right. BNP significantly elevated at 1761. Patient short of breath with orthopnea but maintaining oxygen saturation on room air. Patient underwent dialysis overnight to remove some of the fluid. Echocardiogram still pending. Cardiology is following. Continue dialysis Acute renal failure superimposed on chronic kidney disease Patient with BUNs/CR 40/6.05. Baseline appears to be somewhere around 5. Hal rodgers reports he has been making smaller and smaller amounts of urine. Has received 40 mg of IV Lasix x2 in the emergency room and has had no urine output yet. Patient has extensive edema up to his elbows, and was started on dialysis by Dr. Fournier. Temporary dialysis catheter was placed by Dr. Hills. Patient's fluid status much improved this morning with plans for repeat dialysis sessions. Continue dialysis. Avoid nephrotoxic agents when possible. Nephrology following. Patient still has a massive amount of fluid to be removed. Hypertensive emergency Patient in hypertensive emergency with significantly elevated blood pressures up into the 270 systolic. Patient denies headache or visual changes. Does have elevated troponin of 0.077 as well as ARF superimposed on CKD. Patient received 3 sublingual nitros, p.o. hydralazine, IV hydralazine in the emergency room with reduction in his blood pressure down to the 200s. Patient's blood pressure was slowly reduced and is now in the 180s. Improved somewhat after initial dialysis. Given the degree of edema even in his arms I suspect it is impossible to get an accurate blood pressure reading on him at this time. As needed hydralazine IV for BPs over 200 Restarted patient's home hydralazine, clonidine, amlodipine Elevated troponin Troponin mildly elevated to 0.077, 0.077, 0.061. Suspect troponin leak in setting of CHF exacerbation and CKD. Patient denies chest pain. EKG with no ischemic changes. Patient did received 325 mg of aspirin in the emergency room and is on a daily aspirin and Plavix. Cardiology following. Troponins flat. Telemetry monitoring. Continue daily aspirin Plavix Elevated D-dimer D-dimer elevated to 5.37. Patient has a history of pulmonary embolisms. Patient unable to undergo CTA PE protocol secondary to severe CKD. Suspect patient shortness of breath likely related to his acute CHF exacerbation and edema rather than pulmonary embolism. If patient's respiratory status does not improve once fluid is removed will consider VQ scan. Patient on 01/27 endorsed R calf pain. Ultrasound negative. Hyperlipidemia Continue home statin Type 2 diabetes mellitus Patient on insulin therapy since his 20s. Patient reports however that recently he has not been taking his insulin injectable medication because his blood sugars have been low. Will obtain hemoglobin A1c and place patient on insulin sliding scale. Hemoglobin A1c was 6.8 ISS. [facility] glucose checks Hypothyroidism History of hypothyroidism. Patient has history of noncompliance with medications. TSH 4.9, will restart home levothyroxine. GERD History of GERD. We will continue pantoprazole. Obstructive sleep apnea History of ARDEN with home CPAP. Will make CPAP available for patient in the hospital. DVT prophylaxisSQ heparin Full codeMDM is patient's
[2020-02-29] MEDS: Carvedilol 6.25 MG TAB PO SCH (20:23)
[2020-02-29] MEDS: Guaifenesin DM 100-10/5 ML UDCUP PO PRN (20:24)
[2020-02-29] MEDS: Atorvastatin Calcium 20 MG TAB PO SCH (20:24)
[2020-03-01 04:32] LABS: #Eosinphils 0.2 thou/uL (0.0-0.7); #Lymphocytes 0.9 thou/uL (1.20-3.40); #Monocytes 0.6 thou/uL (0.11-0.59); #Neutrophils 2.6 thou/uL (1.40-6.50); %Basophils 0.9 % (0.0-1.0); %Eosinophils 5.2 % (0.0-10.0); %Lymphocytes 20.7 % (21.0-51.0); %Monocytes 13.2 % (0.0-10.0); Mean Corpuscular HGB CONC 32.7 g/dL (32.0-36.0); Mean Corpuscular Hemoglobin 31.6 pg (27.0-31.0); Mean Corpuscular Volume 96.5 fL (78.0-98.0); Mean Platelet Volume 9.8 fL (7.4-10.4); Platelet Count 123 thou/uL (130-400); RBC Distribution Width 13.9 % (11.5-14.5); Red Blood Cell (RBC) Count 2.53 mill/uL (4.70-6.10); White Blood Cell (WBC) Count 4.2 thou/uL (4.8-10.8)
[2020-03-01 04:57] LABS: ALT (SGPT) 14 U/L (8-55); AST (SGOT) 26 U/L (5-34); Alkaline Phosphatase 83 U/L (40-110); Anion Gap 10 mmol/L (10-20); BUN (Urea Nitrogen) 26 mg/dL (8.9-20.6); Bilirubin, Total 0.2 mg/dL (0.2-1.2); Calc. Creatinine Clearance 51 mL/min (70-130); Calcium 7.6 mg/dL (7.8-10.44); Carbon Dioxide 27 mmol/L (22-29); Chloride 107 mmol/L (98-107); Globulin 2.6 g/dL (2.4-3.5); Glucose 173 mg/dL (70-105); Potassium 3.7 mmol/L (3.5-5.1); Protein, Total 4.6 g/dL (6.0-8.3); Sodium 140 mmol/L (136-145)
[2020-03-01] MEDS: Levothyroxine Sodium 112 MCG TAB PO SCH (05:18)
--- NOTE | 2020-03-01 09:11 | PRG ---
DATE OF SERVICE: 03/01/2020 SUBJECTIVE: Mr. Marlow is doing well. No current complaints. He is being seen on dialysis. OBJECTIVE: VITAL SIGNS: Blood pressure 173/90, pulse 60, temperature afebrile. LUNGS: Clear to auscultation. HEART: Regular rate and rhythm. ABDOMEN: Soft, nontender, nondistended. EXTREMITIES: Significant edema noted to the upper and lower extremities. PERTINENT LABORATORY DATA: Hemoglobin 8.0, hematocrit 24.4, platelet count of 123. IMPRESSION: 1. Atypical chest pain. 2. End-stage kidney disease. 3. Hypertension. RECOMMENDATIONS: Mr. Marlow appears stable. He has no recurrent episodes of chest pain or pressure. At this point, we will treat his primary insult which is renal failure. He appears stable. Otherwise, I have no further recommendations. We will follow peripherally. Please re-consult if needed. Plan is to follow with Mr. Marlow in the office as an outpatient. Job ID: [id number]
[2020-03-01] MEDS ORDERED: Heparin 10,000 UNITS/ 10 ML VIAL ONE ×2 (09:15→16:55)
[2020-03-01] MEDS: Guaifenesin DM 100-10/5 ML UDCUP PO PRN (12:41)
[2020-03-01] MEDS: Aspirin Chewable 81 MG TAB PO SCH (12:41)
[2020-03-01] MEDS: Carvedilol 6.25 MG TAB PO SCH ×2 (12:41→19:57)
[2020-03-01] MEDS: Amlodipine 5 MG TAB PO SCH ×2 (12:42→19:58)
[2020-03-01] MEDS: hydrALAZINE 25 MG TAB PO SCH ×3 (12:42→19:58)
[2020-03-01] MEDS: Heparin 5,000 UNITS/ML VIAL SC SCH ×3 (12:43→21:47)
[2020-03-01] MEDS ORDERED: Ketamine 50 MG/ML (10ML VIAL) ONE (16:25)
[2020-03-01] MEDS ORDERED: Midazolam HCl 2 mg/2 ml Vial ONE (16:25)
[2020-03-01] MEDS ORDERED: Heparin 5,000 UNITS/ML VIAL ONE (16:27)
[2020-03-01] MEDS ORDERED: Lidocaine 1% w/Epinephrine 1:100K 20 ML VIAL ONE (16:27)
[2020-03-01] MEDS ORDERED: Bupivacaine PF 0.5% 30 ML VIAL ONE (16:27)
[2020-03-01] MEDS ORDERED: Sodium Chloride 0.9% 10 ML ONE ×2 (16:27→17:07)
[2020-03-01] MEDS ORDERED: PROPOFOL 20 ML ONE (16:29)
[2020-03-01] MEDS ORDERED: traMADol HCl 50 MG TAB PO PRN (18:05)
[2020-03-01] MEDS ORDERED: Acetaminophen 500 MG TAB PO PRN (18:05)
--- NOTE | 2020-03-01 18:30 | RAD ---
Portable frontal chest radiograph: 03/01/2020 COMPARISON: 02/25/2020 HISTORY: Central line placement FINDINGS: New right vascular catheter/dialysis catheter present, distal tip overlying the inferior as pect of the right atrium. New left vascular catheter present, distal tip overlying the region of the cavoatrial junction. Stable enlargement of the cardiac silhouette with nonspecific increased pare nchymal density in the left base. Stable pulmonary vascular congestion and stable hazy airspace disease in the right base. No pneumothorax. IMPRESSION: Interval placement of vascular catheters as detailed above. Otherwise, no interval change .
--- NOTE | 2020-03-01 18:54 | OP ---
DATE OF PROCEDURE: 03/01/2020 PREOPERATIVE DIAGNOSES: Morbid obesity, end-stage renal disease, left arm severe edema, right arm edema, anasarca, orthopnea. POSTOPERATIVE DIAGNOSES: Morbid obesity, end-stage renal disease, left arm severe edema, right arm edema, anasarca, orthopnea. PROCEDURES PERFORMED: Right internal jugular cuffed tunneled hemodialysis catheter, left internal jugular central line. Note, definitive AV fistula postponed due to the patient's orthopnea and generalized edema. We will perform this later. The patient has had several months of left forearm edema, severe. His veins were superior on the left relative to the right, but we may have to use the right arm instead because the edema issues. ANESTHESIA: Intravenous sedation, local 0.5% Marcaine 30 mL mixed with 1% Xylocaine with epinephrine 20 mL. Fluoroscopy and ultrasound used. DESCRIPTION OF PROCEDURE: The patient was taken to the operating room, where under sedation, his neck and chest were prepared with ChloraPrep and draped in routine fashion. Local anesthetic was infiltrated in the skin and subcutaneous tissue about the operative site. Ultrasound guidance was used to cannulate both the right and left internal jugular vein. J-wire threaded, trocar catheter removed. Skin site enlarged sharply. Stab incision was made over the right chest. Seldinger technique was used to place a triple-lumen catheter on the left, secured with 3-0 nylon suture. Sterile dressing applied. Each port aspirated with blood and flushed with saline solution. On the right side, tunneling device was used to tunnel up [employer] pre-curved hemodialysis catheter between the chest incision and the neck incision, placed the fabric cuff beneath the skin exit site on the chest incision. Catheter was secured with 2 interrupted sutures of 3-0 nylon. Small and medium size dilators were placed over the J-wire, and the internal jugular vein was removed. Dilator and Peel-Away sheath placed over the J-wire into the internal jugular vein, and J-wire and dilator were removed. Catheter was placed with Peel-Away sheath. Peel-Away sheath removed. Fluoroscopically, catheter was noted to be in good position with the tip deep from the SVC. Had good return of venous blood and flushed and flowed well. Each port aspirated with blood, flushed with saline solution and heparinized with saline solution, 1000 units of heparin per mL indicating volume of the port. Fluoroscopy revealed good line placement. Sterile dressings applied. Job ID: [id number]
[2020-03-01] MEDS: hydrALAZINE 20 MG/ML VIAL SLOW IVP PRN (19:57)
[2020-03-01] MEDS: Atorvastatin Calcium 20 MG TAB PO SCH (19:58)
[2020-03-01] MEDS: EPOETIN ALFA-EPBX (ESRD) 10,000 UNIT/ML VIAL IVP SCH (20:13)
--- NOTE | 2020-03-01 22:42 | PDOC.HOSPP ---
- Subjective Encounter Date: 03/01/20 Encounter Time: 09:30 Subjective: Patient seen and examined for acute kidney injury with shortness of breath/volume overload. Denies any chest pain. Shortness of breath improving. Undergoing hemodialysis - Objective Vital Signs & Weight: Vital Signs (12 hours) Temp Pulse Pulse Pulse Resp BP BP 03/01/20 20:00 03/01/20 19:58 75 03/01/20 19:57 75 03/01/20 19:40 98.9 F 75 16 03/01/20 13:30 77 80 192/114 H 03/01/20 12:41 172/83 H 03/01/20 12:00 97.7 F 76 18 BP BP Pulse Ox 03/01/20 20:00 98 03/01/20 19:58 03/01/20 19:57 03/01/20 19:40 215/88 H 99 03/01/20 13:30 169/77 H 03/01/20 12:41 03/01/20 12:00 169/92 H 96 Weight Weight 367 lb 4.642 oz I&O: 02/29/20 03/01/20 03/02/20 06:59 06:59 06:59 Intake Total 1200 1440 Output Total 150 Balance 1200 1440 -150 Result Diagrams: 03/02/20 04:15 03/02/20 04:15 Additional Labs: Accuchecks 03/01/20 03/01/20 20:22 05:59 POC Glucose 143 H 149 H EKG Reviewed by me: Yes (Sinus rhythm on telemetry) Hospitalist ROS - Review of Systems Cardiovascular: reports: edema. denies: chest pain, palpitations, orthopnea, paroxysmal noc. dyspnea, light headedness, other Gastrointestinal: denies: nausea, vomiting, abdominal pain, diarrhea, constipation, melena, hematochezia, other - Medication Medications: Active Medications Generic Name Dose Route Start Last Admin Trade Name Freq PRN Reason Stop Dose Admin Albuterol Sulfate 2.5 mg 02/26/20 23:07 02/27/20 00:18 Albuterol Sulfate 2.5 Mg/3 Ml Neb NEB 2.5 mg Q6HR PRN Administration SOB &/or Wheezing Amlodipine Besylate 5 mg 02/25/20 21:00 03/01/20 19:58 Amlodipine 5 Mg Tab PO 5 mg BID SARA Administration Aspirin 81 mg 02/26/20 09:00 03/01/20 12:41 Aspirin Chewable 81 Mg Tab PO 81 mg DAILY SARA Administration Atorvastatin Calcium 20 mg 02/29/20 21:00 03/01/20 19:58 Atorvastatin Calcium 20 Mg Tab PO 20 mg HS SARA Administration Calcium Carbonate 1,000 mg 02/26/20 21:20 02/26/20 21:27 Calcium Carbonate 500 Mg Chewtab PO 1,000 mg Q4H PRN Administration Heartburn or Indigestion Carvedilol 3.125 mg 02/29/20 21:00 03/01/20 19:57 Carvedilol 6.25 Mg Tab PO 3.125 mg BID SARA Administration Clonidine 0.1 mg 02/26/20 04:42 02/26/20 05:10 Clonidine 0.1 Mg Tab PO 0.1 mg Q6H PRN Administration Systolic BP > 180 Epoetin Gabriel-epbx 10,000 unit 02/25/20 18:19 03/01/20 20:13 Epoetin Gabriel-Epbx (Esrd) 10,000 Unit/Ml Vial IVP Not Given MoWeFr [facility] Guaifenesin/Dextromethorphan 15 ml 02/26/20 23:04 03/01/20 12:41 Guaifenesin Dm 100-10/5 Ml Udcup PO 15 ml Q4H PRN Administration Cough Heparin Sodium (Porcine) 5,000 units 02/25/20 15:00 03/01/20 21:47 Heparin 5,000 Units/Ml Vial SC Not Given TID SARA Hydralazine HCl 10 mg 02/25/20 13:30 03/01/20 19:57 Hydralazine 20 Mg/Ml Vial SLOW IVP 10 mg Q4H PRN Administration SBP Greater Than 180 Hydralazine HCl 25 mg 02/25/20 15:00 03/01/20 19:58 Hydralazine 25 Mg Tab PO 25 mg TID [facility] Administration Insulin Human Lispro 0 units 02/26/20 01:49 02/29/20 05:42 Humalog 300 Units/3 Ml Vial SC 2 units .MILD SLIDING SCALE PRN Administration Mild Correctional Scale Levothyroxine Sodium 112 mcg 02/26/20 06:00 03/01/20 05:18 Levothyroxine Sodium 112 Mcg Tab PO 112 mcg 0600 SARA Administration - Exam General Appearance: ill appearing Heart: RRR, no gallops Respiratory: no wheezes, no ronchi Gastrointestinal: soft, non-distended Extremities: no cyanosis, 2+ LE edema Neurological: no new deficit Hosp A/P - Plan DVT proph w/SCDs Generalized anasarca/volume overload/acute on chronic diastolic heart failure Acute kidney injury on CKD 5 Diabetes mellitus type 2 Atypical chest pain Hypertension Hyperlipidemia Hypothyroidism Morbid obesity with a BMI 47.8 Chronic anemia suspected due to renal insufficiency Obstructive sleep apnea Plan: Tunneled dialysis catheter today. Continue dialysis per nephrology. Continue fluid restriction. Monitor labs daily. Continue sliding scale, hydralazine, carvedilol, Lipitor, levothyroxine and other medications as above
[2020-03-02] MEDS: cloNIDine 0.1 MG TAB PO PRN (04:40)
[2020-03-02] MEDS: Levothyroxine Sodium 112 MCG TAB PO SCH (04:40)
[2020-03-02] MEDS: hydrALAZINE 20 MG/ML VIAL SLOW IVP PRN (04:41)
[2020-03-02 04:44] LABS: #Eosinphils 0.2 thou/uL (0.0-0.7); #Lymphocytes 0.9 thou/uL (1.20-3.40); #Monocytes 0.5 thou/uL (0.11-0.59); %Basophils 0.2 % (0.0-1.0); %Eosinophils 3.4 % (0.0-10.0); %Lymphocytes 19.4 % (21.0-51.0); %Monocytes 11.2 % (0.0-10.0); %Neutrophils 65.9 % (42.0-75.0); Hemoglobin 8.5 g/dL (14.0-18.0); Mean Corpuscular HGB CONC 33.1 g/dL (32.0-36.0); Mean Corpuscular Volume 96.6 fL (78.0-98.0); Mean Platelet Volume 9.5 fL (7.4-10.4); Platelet Count 156 thou/uL (130-400); RBC Distribution Width 13.9 % (11.5-14.5); Red Blood Cell (RBC) Count 2.67 mill/uL (4.70-6.10); White Blood Cell (WBC) Count 4.5 thou/uL (4.8-10.8)
[2020-03-02 05:12] LABS: Anion Gap 12 mmol/L (10-20); BUN (Urea Nitrogen) 17 mg/dL (8.9-20.6); Calc. Creatinine Clearance 70 mL/min (70-130); Calcium 7.7 mg/dL (7.8-10.44); Carbon Dioxide 27 mmol/L (22-29); Chloride 104 mmol/L (98-107); Glucose 149 mg/dL (70-105); Potassium 3.9 mmol/L (3.5-5.1); Sodium 139 mmol/L (136-145)
[2020-03-02] MEDS ORDERED: Heparin 10,000 UNITS/ 10 ML VIAL ONE (09:05)
[2020-03-02] MEDS: Amlodipine 5 MG TAB PO SCH ×2 (09:22→20:35)
[2020-03-02] MEDS: Carvedilol 6.25 MG TAB PO SCH ×2 (09:22→20:31)
[2020-03-02] MEDS: Aspirin Chewable 81 MG TAB PO SCH (09:22)
[2020-03-02] MEDS: Heparin 5,000 UNITS/ML VIAL SC SCH ×3 (09:22→20:31)
[2020-03-02] MEDS: hydrALAZINE 25 MG TAB PO SCH ×3 (09:22→20:32)
--- NOTE | 2020-03-02 12:19 | PRG ---
DATE OF SERVICE: 03/02/2020 SUBJECTIVE: A 44-year-old gentleman, being seen for end-stage renal disease. The patient denied nausea, vomiting, or chest pain. OBJECTIVE: GENERAL: The patient is awake and alert. VITAL SIGNS: Afebrile, pulse 75, breathing at 16, blood pressure 172/86. HEENT: Head normocephalic and atraumatic. Eyes intact, no ulcers. Nose intact, no ulcers. Ears intact, no ulcers. NECK: Supple. No JVD. CHEST: Symmetrical and clear. CARDIOVASCULAR: Shows S1 and S2, no rub, no murmur. GASTROINTESTINAL: Abdomen is soft, bowel sounds positive. EXTREMITIES: Show no edema or ulcers. SKIN: Shows no rash or petechiae. MUSCULOSKELETAL: Shows no joint swelling or stiffness. GENITOURINARY: Shows no Boss or CVA tenderness. NEUROLOGIC: Motor intact. Cranial nerves intact. LABORATORY DATA: Reviewed. ASSESSMENT AND PLAN: 1. Stage 6 chronic kidney disease, plan dialysis. 2. Hypertension, stable. 3. Anemia, stable. Medication based on GFR appropriate. Job ID: [id number]
--- NOTE | 2020-03-02 13:12 | PRG ---
DATE OF SERVICE: 03/01/2020 SUBJECTIVE: A 44-year-old gentleman, being seen for end-stage renal disease. The patient denied nausea, vomiting, or chest pain. OBJECTIVE: General: The patient is awake and alert. Vital Signs: Afebrile, pulse 76, breathing at 16, blood pressure 169/92. HEENT: Head normocephalic and atraumatic. Eyes intact, no ulcers. Nose intact, no ulcers. Ears intact, no ulcers. Neck: Supple. No JVD. Chest: Symmetrical and clear. Cardiovascular: Shows S1 and S2, no rub, no murmur. Gastrointestinal: Abdomen is soft, bowel sounds positive. Extremities: Show no edema or ulcers. Skin: Shows no rash or petechiae. Musculoskeletal: Shows no joint swelling or stiffness. Genitourinary: Shows no Boss or CVA tenderness. Neurologic: Motor intact. Cranial nerves intact. LABORATORY DATA: Hemoglobin 8. Potassium 3.7. ASSESSMENT AND PLAN: 1. Stage 3 chronic kidney disease. Plan dialysis. 2. Hypertension, stable. 3. Anemia, stable. 4. Edema. I would recommend CT chest. Job ID: [id number]
[2020-03-02] MEDS ORDERED: Sterile Water 10 ML VIAL IVP SCH (15:30)
[2020-03-02] MEDS ORDERED: Activase 2 MG VIAL CATH SCH (15:30)
[2020-03-02] MEDS: Atorvastatin Calcium 20 MG TAB PO SCH (20:31)
--- NOTE | 2020-03-02 23:13 | PDOC.HOSPP ---
- Subjective Encounter Date: 03/02/20 Encounter Time: 11:00 Subjective: Patient seen and examined for acute renal failure with anasarca. Undergoing hemodialysis. Denies any new chest pain or nausea. Edema improving. No fever or chills reported. - Objective Vital Signs & Weight: Vital Signs (12 hours) Temp Pulse Resp BP BP Pulse Ox 03/02/20 20:35 81 03/02/20 20:32 81 123/58 L 03/02/20 19:25 97.8 F 81 20 123/58 L 94 L 03/02/20 16:37 98.4 F 79 16 176/74 H 95 03/02/20 11:58 72 19 140/77 95 Weight Weight 372 lb 1.6 oz I&O: 03/01/20 03/02/20 03/03/20 06:59 06:59 06:59 Intake Total 1440 300 240 Output Total 150 0 Balance 1440 150 240 Result Diagrams: 03/03/20 04:30 03/03/20 04:30 Additional Labs: Accuchecks 03/02/20 03/02/20 03/02/20 20:35 16:50 10:17 POC Glucose 169 H 127 H 126 H EKG Reviewed by me: Yes (Sinus rhythm on telemetry) Hospitalist ROS - Review of Systems Cardiovascular: denies: chest pain, palpitations, orthopnea, paroxysmal noc. dyspnea, edema, light headedness, other Gastrointestinal: denies: nausea, vomiting, abdominal pain, diarrhea, constipation, melena, hematochezia, other - Medication Medications: Active Medications Generic Name Dose Route Start Last Admin Trade Name Freq PRN Reason Stop Dose Admin Albuterol Sulfate 2.5 mg 02/26/20 23:07 02/27/20 00:18 Albuterol Sulfate 2.5 Mg/3 Ml Neb NEB 2.5 mg Q6HR PRN Administration SOB &/or Wheezing Amlodipine Besylate 5 mg 02/25/20 21:00 03/02/20 20:35 Amlodipine 5 Mg Tab PO 5 mg BID SARA Administration Aspirin 81 mg 02/26/20 09:00 03/02/20 09:22 Aspirin Chewable 81 Mg Tab PO 81 mg DAILY SARA Administration Atorvastatin Calcium 20 mg 02/29/20 21:00 03/02/20 20:31 Atorvastatin Calcium 20 Mg Tab PO 20 mg HS SARA Administration Calcium Carbonate 1,000 mg 02/26/20 21:20 02/26/20 21:27 Calcium Carbonate 500 Mg Chewtab PO 1,000 mg Q4H PRN Administration Heartburn or Indigestion Carvedilol 3.125 mg 02/29/20 21:00 03/02/20 20:31 Carvedilol 6.25 Mg Tab PO 3.125 mg BID SARA Administration Clonidine 0.1 mg 02/26/20 04:42 03/02/20 04:40 Clonidine 0.1 Mg Tab PO 0.1 mg Q6H PRN Administration Systolic BP > 180 Epoetin Gabriel-epbx 10,000 unit 02/25/20 18:19 03/01/20 20:13 Epoetin Gabriel-Epbx (Esrd) 10,000 Unit/Ml Vial IVP Not Given MoWeFr [facility] Guaifenesin/Dextromethorphan 15 ml 02/26/20 23:04 03/01/20 12:41 Guaifenesin Dm 100-10/5 Ml Udcup PO 15 ml Q4H PRN Administration Cough Heparin Sodium (Porcine) 5,000 units 02/25/20 15:00 03/02/20 20:31 Heparin 5,000 Units/Ml Vial SC 5,000 units TID SARA Administration Hydralazine HCl 10 mg 02/25/20 13:30 03/02/20 04:41 Hydralazine 20 Mg/Ml Vial SLOW IVP 10 mg Q4H PRN Administration SBP Greater Than 180 Hydralazine HCl 25 mg 02/25/20 15:00 03/02/20 20:32 Hydralazine 25 Mg Tab PO 25 mg TID SARA Administration Insulin Human Lispro 0 units 02/26/20 01:49 02/29/20 05:42 Humalog 300 Units/3 Ml Vial SC 2 units .MILD SLIDING SCALE PRN Administration Mild Correctional Scale Levothyroxine Sodium 112 mcg 02/26/20 06:00 03/02/20 04:40 Levothyroxine Sodium 112 Mcg Tab PO 112 mcg 0600 SARA Administration - Exam General Appearance: NAD Heart: RRR, no gallops Respiratory: no wheezes, no ronchi Gastrointestinal: soft, non-distended Extremities: 2+ LE edema Neurological: no new deficit Hosp A/P - Plan DVT proph w/SCDs Generalized anasarca/volume overload/acute on chronic diastolic heart failure AMOR on CKD 5 Diabetes mellitus type 2 Atypical chest pain Hypertension Hyperlipidemia Hypothyroidism Morbid obesity with a BMI 47.8 Chronic anemia suspected due to renal insufficiency Obstructive sleep apnea Plan: S/p tunneled dialysis catheter. Undergoing hemodialysis. Will discontinue amlodipine due to persistent generalized anasarca. Increase hydralazine dose to 50 mg 3 times daily. Continue current dose of carvedilol. Continue hemodialysis per nephrology. A.m. labs
[2020-03-03] MEDS: Levothyroxine Sodium 112 MCG TAB PO SCH (05:06)
[2020-03-03 05:37] LABS: Anion Gap 8 mmol/L (10-20); BUN (Urea Nitrogen) 13 mg/dL (8.9-20.6); Calc. Creatinine Clearance 76 mL/min (70-130); Calcium 7.4 mg/dL (7.8-10.44); Carbon Dioxide 32 mmol/L (22-29); Chloride 105 mmol/L (98-107); Glucose 127 mg/dL (70-105); Potassium 3.8 mmol/L (3.5-5.1); Sodium 141 mmol/L (136-145)
[2020-03-03 06:44] LABS: Hemoglobin 7.2 g/dL (14.0-18.0); Mean Corpuscular HGB CONC 33.4 g/dL (32.0-36.0); Mean Corpuscular Hemoglobin 32.8 pg (27.0-31.0); Mean Corpuscular Volume 98.4 fL (78.0-98.0); Mean Platelet Volume 9.3 fL (7.4-10.4); Platelet Count 122 thou/uL (130-400); RBC Distribution Width 13.9 % (11.5-14.5); White Blood Cell (WBC) Count 3.6 thou/uL (4.8-10.8)
[2020-03-03 06:50] LABS: Band 3 % (5-11); Eosinophils 3 % (0-10); Lymphocytes 31 % (21-51); MDiff Complete? YES; Monocytes 15 % (0-10); Neutrophil 48 % (42-75)
[2020-03-03] MEDS: Heparin 5,000 UNITS/ML VIAL SC SCH ×2 (09:18→14:40)
[2020-03-03] MEDS: hydrALAZINE 25 MG TAB PO SCH ×3 (09:18→20:51)
[2020-03-03] MEDS ORDERED: CEFAZOLIN 2 GM in Premix Bag 1 BAG IVPB SCH (10:45)
--- NOTE | 2020-03-03 10:45 | PRG ---
DATE OF SERVICE: 03/03/2020 SUBJECTIVE: A 44-year-old gentleman, being seen for end-stage renal disease. The patient denies any nausea, vomiting, or chest pain. OBJECTIVE: GENERAL: The patient is awake and alert. VITAL SIGNS: Afebrile, pulse 75, breathing at 16, blood pressure 121/64. HEENT: Head normocephalic and atraumatic. Eyes intact, no ulcers. Nose intact, no ulcers. Ears intact, no ulcers. NECK: Supple. No JVD. CHEST: Symmetrical and clear. CARDIOVASCULAR: Shows S1 and S2, no rub, no murmur. GASTROINTESTINAL: Abdomen is soft, bowel sounds positive. EXTREMITIES: Show no edema or ulcers. SKIN: Shows no rash or petechiae. MUSCULOSKELETAL: Shows no joint swelling or stiffness. GENITOURINARY: Shows no Boss or CVA tenderness. NEUROLOGIC: Motor intact. Cranial nerves intact. LABORATORY DATA: Reviewed. ASSESSMENT AND PLAN: 1. Chronic kidney disease, stage 6 with generalized edema and anasarca. Continue dialysis. Failed access. 2. Anemia, stable. Medication based on GFR appropriate. The patient will need 2 units of blood with dialysis. Job ID: [id number]
[2020-03-03] MEDS: Amlodipine 5 MG TAB PO SCH (10:57)
[2020-03-03] MEDS: Carvedilol 6.25 MG TAB PO SCH ×2 (10:58→20:50)
[2020-03-03] MEDS: Aspirin Chewable 81 MG TAB PO SCH (10:58)
[2020-03-03] MEDS ORDERED: Heparin 10,000 UNITS/ 10 ML VIAL ONE ×2 (11:04→12:15)
[2020-03-03] MEDS ORDERED: hydrALAZINE 25 MG TAB PO SCH (11:15)
[2020-03-03] MEDS ORDERED: Sodium Chloride 0.9% 30 ML ONE (12:15)
[2020-03-03] MEDS ORDERED: Bupivacaine 0.25% HCL 30 ML VIAL ONE (12:15)
[2020-03-03] MEDS ORDERED: Lidocaine 1% w/Epinephrine 1:100K 20 ML VIAL ONE (12:15)
[2020-03-03] MEDS ORDERED: Midazolam HCl 2 mg/2 ml Vial ONE (12:22)
[2020-03-03] MEDS ORDERED: Ketamine 50 MG/ML (10ML VIAL) ONE (12:22)
--- NOTE | 2020-03-03 14:15 | RAD ---
Exam: Chest one view HISTORY:Central line placement. Comparison: 03/01/2020 FINDINGS: Cardiac silhouette:Cardiomegaly. Lines and tubes: Stable left-sided internal jugular vascular catheter and right-sided HemoSplit dialy sis catheter. Aorta: Unremarkable Pulmonary vessels: Normal Costophrenic angles: Left pleural effusion. LUNGS: Left lower lobe opacity with obscuration left hemidiaphragm and descending thoracic aorta. Pneumothorax: None Osseous abnormalities: None IMPRESSION: 1. No pneumothorax 2. Stable vascular catheters. 3. Stable cardiomegaly. 4. Persistent opacification due to pleural and parenchymal changes in the left lung base.
[2020-03-03] MEDS: EPOETIN ALFA-EPBX (ESRD) 10,000 UNIT/ML VIAL IVP SCH (17:42)
--- NOTE | 2020-03-03 18:18 | PDOC.HOSPP ---
- Subjective Encounter Date: 03/03/20 Encounter Time: 10:00 Subjective: Patient seen and examined for acute kidney injury. Unable to dialyze due to malfunctioning catheter. Denies new chest pain or shortness of breath. Anasarca slowly improving. - Objective Vital Signs & Weight: Vital Signs (12 hours) Temp Pulse Resp BP BP Pulse Ox 03/03/20 14:10 97.8 F 74 14 154/66 H 96 03/03/20 11:12 98.3 F 84 18 187/95 H 95 03/03/20 07:41 98.4 F 63 20 135/64 97 Weight Weight 351 lb 6.4 oz I&O: 03/02/20 03/03/20 03/04/20 06:59 06:59 06:59 Intake Total 514 402 7328 Output Total 150 0 Balance 663 714 4588 Result Diagrams: 03/03/20 04:30 03/03/20 04:30 Additional Labs: Accuchecks 03/03/20 03/03/20 03/03/20 17:45 12:07 06:05 POC Glucose 131 H 123 H 112 H 03/02/20 20:35 POC Glucose 169 H Abnormal Lab Results - Last 48 hrs 03/02/20 04:15: WBC 4.5 L, RBC 2.67 L, Hgb 8.5 L, Hct 25.8 L, MCH 32.0 H, Lymphocytes % 19.4 L, Monocytes % 11.2 H, Lymphocytes # 0.9 L 03/02/20 04:15: Creatinine 3.21 H, Calcium 7.7 L 03/03/20 04:30: WBC 3.6 L, RBC 2.20 L, Hgb 7.2 L, Hct 21.6 L, MCV 98.4 H, MCH 32.8 H, Plt Count 122 L, Band Neuts % (Manual) 3 L, Monocytes % (Manual) 15 H 03/03/20 04:30: Carbon Dioxide 32 H, Anion Gap 8 L, Creatinine 2.78 H, Calcium 7.4 L 03/03/20 14:12: Crossmatch See Detail Microbiology - Entire Visit 02/25/20 13:56 Venous blood - Left Hand Blood Culture - Final NO GROWTH IN 5 DAYS 02/25/20 13:56 Venous blood - Right Hand Blood Culture - Final NO GROWTH IN 5 DAYS EKG Reviewed by me: Yes (Sinus rhythm on telemetry) Hospitalist ROS - Review of Systems Respiratory: reports: SOB with excertion. denies: cough, dry, shortness of breath, hemoptysis, pleuritic pain, sputum, wheezing, other Cardiovascular: denies: chest pain, palpitations, orthopnea, paroxysmal noc. dyspnea, edema, light headedness, other - Medication Medications: Active Medications Generic Name Dose Route Start Last Admin Trade Name Freq PRN Reason Stop Dose Admin Albuterol Sulfate 2.5 mg 02/26/20 23:07 02/27/20 00:18 Albuterol Sulfate 2.5 Mg/3 Ml Neb NEB 2.5 mg Q6HR PRN Administration SOB &/or Wheezing Aspirin 81 mg 02/26/20 09:00 03/03/20 10:58 Aspirin Chewable 81 Mg Tab PO Not Given DAILY SARA Atorvastatin Calcium 20 mg 02/29/20 21:00 03/02/20 20:31 Atorvastatin Calcium 20 Mg Tab PO 20 mg HS SARA Administration Calcium Carbonate 1,000 mg 02/26/20 21:20 02/26/20 21:27 Calcium Carbonate 500 Mg Chewtab PO 1,000 mg Q4H PRN Administration Heartburn or Indigestion Carvedilol 3.125 mg 02/29/20 21:00 03/03/20 10:58 Carvedilol 6.25 Mg Tab PO Not Given BID SARA Clonidine 0.1 mg 02/26/20 04:42 03/02/20 04:40 Clonidine 0.1 Mg Tab PO 0.1 mg Q6H PRN Administration Systolic BP > 180 Epoetin Gabriel-epbx 10,000 unit 02/25/20 18:19 03/03/20 17:42 Epoetin Gabriel-Epbx (Esrd) 10,000 Unit/Ml Vial IVP 10,000 unit MoWeFr SARA Administration Guaifenesin/Dextromethorphan 15 ml 02/26/20 23:04 03/01/20 12:41 Guaifenesin Dm 100-10/5 Ml Udcup PO 15 ml Q4H PRN Administration Cough Heparin Sodium (Porcine) 5,000 units 02/25/20 15:00 03/03/20 14:40 Heparin 5,000 Units/Ml Vial SC Not Given TID SARA Hydralazine HCl 10 mg 02/25/20 13:30 03/02/20 04:41 Hydralazine 20 Mg/Ml Vial SLOW IVP 10 mg Q4H PRN Administration SBP Greater Than 180 Hydralazine HCl 50 mg 03/03/20 15:00 03/03/20 14:40 Hydralazine 25 Mg Tab PO Not Given TID SARA Cefazolin Sodium/Dextrose 2 gm 50 mls @ 100 mls/hr 03/03/20 10:45 03/03/20 11:16 / Device IVPB 50 mls ONCALL-OR SARA Administration Insulin Human Lispro 0 units 02/26/20 01:49 02/29/20 05:42 Humalog 300 Units/3 Ml Vial SC 2 units .MILD SLIDING SCALE PRN Administration Mild Correctional Scale Levothyroxine Sodium 112 mcg 02/26/20 06:00 03/03/20 05:06 Levothyroxine Sodium 112 Mcg Tab PO 112 mcg 0600 SARA Administration - Exam General Appearance: NAD Neck: supple Heart: RRR, no gallops Respiratory: no wheezes, no ronchi Gastrointestinal: soft, non-tender, normal bowel sounds Extremities: no cyanosis, 2+ LE edema Hosp A/P - Plan DVT proph w/heparin Generalized anasarca/volume overload/acute on chronic diastolic heart failure AMOR on CKD 5 Diabetes mellitus type 2 Atypical chest pain Hypertension Hyperlipidemia Hypothyroidism Morbid obesity with a BMI 47.8 Chronic anemia suspected due to renal insufficiency Obstructive sleep apnea Plan: General surgery consultation for malfunctioning dialysis catheter. Continue n.p.o. Continue fluid restriction. Monitor renal function daily. Sleep study as outpatient. Continue sliding scale. Encourage patient to ambulate.
[2020-03-03] MEDS: Atorvastatin Calcium 20 MG TAB PO SCH (20:51)
[2020-03-04] MEDS: Levothyroxine Sodium 112 MCG TAB PO SCH (05:49)
[2020-03-04 06:28] LABS: Anion Gap 11 mmol/L (10-20); BUN (Urea Nitrogen) 10 mg/dL (8.9-20.6); Calc. Creatinine Clearance 77 mL/min (70-130); Calcium 7.4 mg/dL (7.8-10.44); Carbon Dioxide 29 mmol/L (22-29); Chloride 105 mmol/L (98-107); Glucose 100 mg/dL (70-105); Potassium 3.7 mmol/L (3.5-5.1); Sodium 141 mmol/L (136-145)
[2020-03-04 06:53] LABS: Band 3 % (5-11); Eosinophils 5 % (0-10); Hemoglobin 8.7 g/dL (14.0-18.0); Lymphocytes 19 % (21-51); MDiff Complete? YES; Mean Corpuscular HGB CONC 33.2 g/dL (32.0-36.0); Mean Corpuscular Hemoglobin 31.5 pg (27.0-31.0); Mean Corpuscular Volume 95.1 fL (78.0-98.0); Mean Platelet Volume 9.5 fL (7.4-10.4); Monocytes 14 % (0-10); Neutrophil 59 % (42-75); Platelet Count 122 thou/uL (130-400); RBC Distribution Width 14.1 % (11.5-14.5); Red Blood Cell (RBC) Count 2.75 mill/uL (4.70-6.10); White Blood Cell (WBC) Count 4.2 thou/uL (4.8-10.8)
[2020-03-04] MEDS: hydrALAZINE 25 MG TAB PO SCH ×2 (08:52→15:26)
--- NOTE | 2020-03-04 10:26 | PRG ---
DATE OF SERVICE: 03/04/2020 SUBJECTIVE: A 44-year-old gentleman, being seen for end-stage renal disease. The patient denied nausea, vomiting, or chest pain. OBJECTIVE: GENERAL: The patient is awake and alert. VITAL SIGNS: Pulse 65, breathing 16, blood pressure 181/84. HEENT: Head normocephalic and atraumatic. Eyes intact, no ulcers. Nose intact, no ulcers. Ears intact, no ulcers. NECK: Supple. No JVD. CHEST: Symmetrical and clear. CARDIOVASCULAR: Shows S1 and S2, no rub, no murmur. GASTROINTESTINAL: Abdomen is soft, bowel sounds positive. EXTREMITIES: Show no edema or ulcers. SKIN: Shows no rash or petechiae. MUSCULOSKELETAL: Shows no joint swelling or stiffness. GENITOURINARY: Shows no Boss or CVA tenderness. NEUROLOGIC: Motor intact. Cranial nerves intact. LABORATORY DATA: Reviewed. ASSESSMENT AND PLAN: 1. Stage 6 chronic kidney disease, plan dialysis. 2. Hypertension, plan dialysis. 3. Anemia, stable. Medication based on GFR appropriate. Congestive heart failure. Continue ultrafiltration on a regular basis. Job ID: [id number]
[2020-03-04] MEDS ORDERED: Heparin 10,000 UNITS/ 10 ML VIAL ONE (11:02)
[2020-03-04] MEDS: Aspirin Chewable 81 MG TAB PO SCH (13:19)
[2020-03-04] MEDS: Carvedilol 6.25 MG TAB PO SCH (13:19)
--- NOTE | 2020-03-04 15:20 | EKG ---
Test Reason : Blood Pressure : / mmHG Vent. Rate : 083 BPM Atrial Rate : 083 BPM P-R Int : 184 ms QRS Dur : 086 ms QT Int : 368 ms P-R-T Axes : 037 013 131 degrees QTc Int : 432 ms Normal sinus rhythm Possible Anterior infarct , age undetermined Abnormal ECG Confirmed by PEACE CONWAY DO ([id number]), video news editor FILOMENA RAMOS ([id number]) on 03/04/2020 3:19:50 PM Referred By: Confirmed By:PEACE CONWAY DO
[2020-03-04 15:25] VITALS: BP 179/82; TEMP 98.2
--- NOTE | 2020-03-04 18:49 | PDOC.DS.DS ---
Provider - Provider Date of Admission: 02/25/20 16:06 Date of Discharge: 03/04/20 Admitting Provider: Betty Acevedo MD Consultations: Cardiology, General Surgery, Nephrology Primary Care Physician: Nir Carrion MD Course - Hospital Course Hospital Course: Patient is a 44-year-old male with CKD stage IV, hypertension, hyperlipidemia and diabetes mellitus type 2 presented to the emergency room on 02/24 with worsening shortness of breath. His work-up was consistent with volume overload along with worsening CKD and uncontrolled hypertension. Please refer to the history and physical for further details The patient was admitted to the hospital with the above diagnosis. He underwent a femoral dialysis catheter placed in the right groin on 02/24 for hemodialysis. He underwent hemodialysis per nephrology. Later on right IJ cuffed tunneled hemodialysis catheter was placed. AV fistula was postponed due to orthopnea as well as generalized edema. He was also evaluated by cardiology Dr. Stacy. His medications have been optimized. He has been cleared by consultants for discharge. Outpatient hemodialysis has been arranged. Final diagnosis: Generalized anasarca/volume overload/acute on chronic diastolic heart failure AMOR on CKD 5 Diabetes mellitus type 2 Atypical chest pain Coronary artery disease Hypertensive crisis on admission Hyperlipidemia Hypothyroidism Morbid obesity with a BMI 47.8 Chronic anemia suspected due to renal insufficiency Obstructive sleep apneaon CPAP - Labs Lab Results: 03/04/20 04:30 03/04/20 04:30 Abnormal Lab Results - Last 48 hrs 03/03/20 04:30: WBC 3.6 L, RBC 2.20 L, Hgb 7.2 L, Hct 21.6 L, MCV 98.4 H, MCH 32.8 H, Plt Count 122 L, Band Neuts % (Manual) 3 L, Monocytes % (Manual) 15 H 03/03/20 04:30: Carbon Dioxide 32 H, Anion Gap 8 L, Creatinine 2.78 H, Calcium 7.4 L 03/03/20 14:12: Crossmatch See Detail 03/04/20 04:30: WBC 4.2 L, RBC 2.75 L, Hgb 8.7 L, Hct 26.1 L, MCH 31.5 H, Plt Count 122 L, Band Neuts % (Manual) 3 L, Lymphocytes % (Manual) 19 L, Monocytes % (Manual) 14 H 03/04/20 04:30: Creatinine 2.70 H, Calcium 7.4 L Microbiology - Entire Visit 02/25/20 13:56 Venous blood - Left Hand Blood Culture - Final NO GROWTH IN 5 DAYS 02/25/20 13:56 Venous blood - Right Hand Blood Culture - Final NO GROWTH IN 5 DAYS - Physical Exam Vitals: Vital Signs (12 hours) Temp Pulse Resp BP Pulse Ox 03/04/20 15:22 98.2 F 75 16 179/82 H 94 L 03/04/20 11:05 69 22 H 168/98 H 95 03/04/20 07:02 98.0 F 69 20 181/84 H 93 L Weight Weight 342 lb 4.8 oz Physical Exam: The patient was seen and examined on the day of discharge. Plan - Discharge Medications Prescriptions: Carvedilol [Coreg] 3.125 mg PO BID #60 tab hydrALAZINE HCl [Hydralazine HCl] 50 mg PO TID #90 tablet Home Medications: Medication Instructions Recorded Confirmed Type Levothyroxine Sodium [Synthroid] 112 mcg PO DAILY 01/24/14 02/25/20 History Methocarbamol 500 mg PO BID PRN 01/24/14 02/25/20 History Clopidogrel Bisulfate [Plavix] 75 mg PO DAILY #30 tab 01/18/16 02/25/20 Rx cloNIDine [Catapres] 0.1 mg PO Q6H PRN #20 tab 10/02/16 02/25/20 Rx Methocarbamol 500 mg PO DAILY 02/25/20 02/25/20 History Omeprazole 1 tab PO DAILY 02/25/20 02/25/20 History Simvastatin 40 mg PO HS 02/25/20 02/25/20 History Ventolin HFA Inhaler 2 puff INH Q6HR PRN 02/26/20 02/26/20 History Carvedilol [Coreg] 3.125 mg PO BID #60 tab 03/04/20 Rx hydrALAZINE HCl [Hydralazine HCl] 50 mg PO TID #90 tablet 03/04/20 Rx Allergies: No Known Drug Allergies Allergy (Verified 02/25/20 17:24) - Follow up Plan Referrals: [facility] [Other] (Scheduled outpatient dialysis is on Tuesdays, , and Saturdays at 5:00 AM. Your first outpatient dialysis treatment, you will need to bring your insurance card, photo identification, and list of medications. Please call on Friday to confirm your session for Friday due to the holiday weekend. ) [facility] [Outside] - 7 Days (Your doctor has ordered outpatient cardiac rehab for you to begin within 1-2 weeks after you go home from the hospital. The location nearest to you is the [facility]. We will call you in 3-5 days to get you scheduled for your evaluation. If you do not receive a call, please reach out to us at [phone] and request an appointme nt.) Aiden Hills MD [Active] - 2-3 Weeks (CALL OFFICE TO SCHEDULE APPOINTMENT) Sahil Stacy MD [Active] - 3 Days (Please call office for appt) Nir Carrion MD [Primary Care Provider] - 7 Days (CALL OFFICE TO SCHEDULE APPOINTMENT) Disposition: HOME Quality - Care Measures CORE MEASURES:: N/A
--- NOTE | 2020-03-05 14:06 | OP ---
DATE OF PROCEDURE: 03/03/2020 PREOPERATIVE DIAGNOSES: End-stage renal disease, morbid obesity, 45 BMI, hemodialysis catheter malfunction. POSTOPERATIVE DIAGNOSES: End-stage renal disease, morbid obesity, 45 BMI, hemodialysis catheter malfunction. PROCEDURES PERFORMED: Removal of old hemodialysis catheter from right IJ and placement of new hemodialysis catheter in right IJ with shorter length. ANESTHESIA: Intravenous sedation with local 0.5% Marcaine 30 mL mixed with 1% Xylocaine with epinephrine 20 mL. Fluoroscopy used. DESCRIPTION OF PROCEDURE: The patient was taken to the operating room, where under intravenous sedation, neck and chest prepared with ChloraPrep and draped in routine fashion. Right IJ catheter also prepared with ChloraPrep at exit site. Local anesthetic was infiltrated in the skin and subcutaneous tissue about the operative site. An incision was made on the right side of the neck through the old scar, and dialysis catheter identified, brought into the wound, controlled with hemostats, transected, and the catheter removed from the exit site, and area prepared with ChloraPrep again. A new stab incision was made over the right chest, and using the tunneling device, the new shorter length hemodialysis catheter tunneled between the 2 incisions, placing the fabric cuff beneath the skin exit site, catheter secured with two interrupted suture of 3-0 nylon, sterile dressing applied. CHD dressing used. Dilator and Peel-Away sheath placed over the J-wire into the internal jugular vein. Dilator and J-wire were removed, catheter placed with Peel-Away sheath. Peel-Away sheath removed. Platysma was approximated with 4-0 Monocryl, skin with subdermal 4-0 Monocryl. Fluoroscopic images revealed catheter in good position with the tip little higher in the SVC than the previous one. Each port aspirated of blood, flushed with saline solution and heparinized saline solution with 1000 units of heparin per mL, indicating volume of the port. Prior to flushing the catheter, the catheter was aspirated and flushed and it performed without restriction. Job ID: [id number]
== END 2020-03-04 16:10 | disposition home or self-care (01) | DRG 673 ==
LOC: ERS 10:19 → 2NO 16:06
PROVIDERS: ADMIT Internal Medicine; ATTEND Internal Medicine
PROC: 06HY33Z Insertion of Infusion Device into Lower Vein, Percutaneous Approach (ICD-10-PCS; principal; 2020-02-25)
PROC: 5A1D70Z Performance of Urinary Filtration, Intermittent, Less than 6 Hours Per Day (ICD-10-PCS; 2020-02-25)
PROC: 02HV33Z Insertion of Infusion Device into Superior Vena Cava, Percutaneous Approach (ICD-10-PCS; 2020-03-01)
PROC: 02PYX3Z Removal of Infusion Device from Great Vessel, External Approach (ICD-10-PCS; 2020-03-03)
PROC: 02HV33Z Insertion of Infusion Device into Superior Vena Cava, Percutaneous Approach (ICD-10-PCS; 2020-03-03)
PROC: 0JH63XZ Insertion of Tunneled Vascular Access Device into Chest Subcutaneous Tissue and Fascia, Percutaneous Approach (ICD-10-PCS; 2020-03-03)
DX: N17.9 Acute kidney failure, unspecified (principal); I50.33 Acute on chronic diastolic (congestive) heart failure; I13.2 Hypertensive heart and chronic kidney disease with heart failure and with stage 5 chronic kidney disease, or end stage renal disease; E87.2 Acidosis; I16.1 Hypertensive emergency; Z68.42 Body mass index [BMI] 45.0-49.9, adult; I47.2 Ventricular tachycardia; I13.0 Hypertensive heart and chronic kidney disease with heart failure and stage 1 through stage 4 chronic kidney disease, or unspecified chronic kidney disease; T82.49XA Other complication of vascular dialysis catheter, initial encounter; N18.6 End stage renal disease; E87.70 Fluid overload, unspecified; Z23 Encounter for immunization; Z20.828 Contact with and (suspected) exposure to other viral communicable diseases; E11.22 Type 2 diabetes mellitus with diabetic chronic kidney disease; I25.10 Atherosclerotic heart disease of native coronary artery without angina pectoris; E78.5 Hyperlipidemia, unspecified; E66.01 Morbid (severe) obesity due to excess calories; D63.1 Anemia in chronic kidney disease; K21.9 Gastro-esophageal reflux disease without esophagitis; E03.9 Hypothyroidism, unspecified; Z53.8 Procedure and treatment not carried out for other reasons; G47.33 Obstructive sleep apnea (adult) (pediatric); Z86.711 Personal history of pulmonary embolism; Z79.01 Long term (current) use of anticoagulants; Z79.4 Long term (current) use of insulin; Z79.899 Other long term (current) drug therapy; Z79.890 Hormone replacement therapy; Z99.89 Dependence on other enabling machines and devices; Z79.51 Long term (current) use of inhaled steroids; Y84.1 Kidney dialysis as the cause of abnormal reaction of the patient, or of later complication, without mention of misadventure at the time of the procedure
CPT/HCPCS: 36415; 36416; 36430; 71045; 80048; 80053; 81001; 82553; 83036; 83605; 83735; 83880; 84443; 84484; 85025; 85379; 85610; 85730; 86580; 86704; 86706; 86769; 86803; 86850; 86900; 86901; 87040; 87340; 87635; 90935; 93005; 93306; 93798; 93970; 94640; 94760; 96365; 96375; 96376; C1752; G0257; J0360; J0456; J0690; J0696; J1642; J1644; J1940; J2250; J2704; J7611; P9016; Q5105; S0020; U0003

== ENCOUNTER 2020-03-31 08:06 | Outpatient (CLI) | payer MEDICARE ==
[2020-03-31 16:49] LABS: #Eosinphils 0.2 10x3/uL (0.0-0.5); #Monocytes 0.7 10x3/uL (0.0-1.1); #Neutrophils 2.5 10x3/uL (1.5-8.4); %Basophils 0.9 % (0.0-2.0); %Eosinophils 4.8 % (0.0-6.0); %Lymphocytes 21.1 % (18.0-47.0); %Monocytes 15.8 % (0.0-10.0); %Neutrophils 56.7 % (40.0-75.0); Hemoglobin 10.3 g/dL (14.0-18.0); Mean Corpuscular HGB CONC 31.8 G/DL (32.0-36.0); Mean Corpuscular Volume 97.6 fl (80.0-100.0); Mean Platelet Volume 12.8 fl (7.4-10.4); Platelet Count 178 10x3/uL (130-400); RBC Distribution Width 14.6 % (11.5-14.5); Red Blood Cell (RBC) Count 3.32 10x6/uL (4.40-5.80); White Blood Cell (WBC) Count 4.4 10x3/uL (4.5-11.0)
[2020-03-31 16:52] LABS: Anion Gap 15 mmol/L (10-20); BUN (Urea Nitrogen) 20 mg/dL (8.9-20.6); Calc. Creatinine Clearance 0 mL/min (70-130); Calcium 8.8 mg/dL (7.8-10.44); Carbon Dioxide 29 mmol/L (22-29); Chloride 95 mmol/L (98-107); Glucose 427 mg/dL (70-105); Potassium 3.9 mmol/L (3.5-5.1)
[2020-03-31 17:09] LABS: Sodium 137 mmol/L (136-145)
[2020-04-01 03:57] LABS: SARS-CoV-2 MS2 Positive; SARS-CoV-2 N Gene Negative; SARS-CoV-2 S Gene Negative; SARS-CoV-2 by NAA Not Detected (NotDetected); SARS-CoV-2 orf1ab Negative
== END 2020-03-31 08:07 | disposition home or self-care (01) ==
LOC: LABBT 08:06
PROVIDERS: ATTEND Specialist
DX: Z01.812 Encounter for preprocedural laboratory examination (principal); N18.6 End stage renal disease; Z20.822 Contact with and (suspected) exposure to COVID-19
CPT/HCPCS: 80048; 85025; U0003; U0005; 87635

== ENCOUNTER 2020-04-05 07:32 | Day surgery (SDC) | payer MEDICARE ==
[2020-04-03 11:37] VITALS: BMI 37.5
[2020-04-05] MEDS ORDERED: Lidocaine 2% w/Epinephrine 1:200K 20 ML VIAL ONE (08:59)
[2020-04-05] MEDS ORDERED: Bupivacaine PF 0.5% 30 ML VIAL ONE (08:59)
[2020-04-05] MEDS ORDERED: Protamine Sulfate 50 MG/5 ML VIAL ONE (08:59)
[2020-04-05] MEDS ORDERED: Heparin 5,000 UNITS/ML VIAL ONE (08:59)
[2020-04-05] MEDS ORDERED: Fentanyl 100 MCG/2 ML VIAL ONE ×2 (09:00→09:01)
[2020-04-05] MEDS ORDERED: Propofol 1,000 MG/100 ML VIAL IV ONE (09:01)
[2020-04-05] MEDS ORDERED: Propofol 500 MG/50 ML VIAL ONE (09:01)
[2020-04-05] MEDS ORDERED: Midazolam HCl 2 mg/2 ml Vial ONE (09:01)
[2020-04-05] MEDS ORDERED: Ondansetron PF 4 MG/2 ML Vial ONE (09:59)
[2020-04-05] MEDS ORDERED: PROPOFOL 200 MG/20 ML VIAL ONE (09:59)
[2020-04-05] MEDS ORDERED: Bupivacaine HCl 0.5%/Epinephrine 1:200,000/PF 30 ml Vial ONE (09:59)
--- NOTE | 2020-04-05 11:27 | OP ---
DATE OF PROCEDURE: 04/05/2020 PREOPERATIVE DIAGNOSES: End-stage renal disease and morbid obesity. POSTOPERATIVE DIAGNOSES: End-stage renal disease and morbid obesity. ANESTHESIA: Regional, TIVA. PROCEDURE PERFORMED: Left wrist Ra fistula in cephalic vein to side radial artery 4 mm coronary dilator out the venous outflow, excellent size cephalic vein. DESCRIPTION OF PROCEDURE: The patient was taken to the operating room, where under regional anesthesia and intravenous sedation, left upper extremity was prepared with ChloraPrep and draped in routine fashion. A longitudinal incision was made in the left wrist, carried down out skin and subcutaneous tissue. Cephalic vein and radial artery dissected free. The patient was given 6000 units of heparin intravenously. Stump of the cephalic vein on the hand side, ligated with real silk tie and vein divided, spatulated, interrogated with coronary dilators, passing coronary dilators from 2 mm to 4 mm dilator without restriction throughout the length. It was flushed with heparinized saline solution. The patient had been given 6000 units of heparin intravenously. After adequate circulation time, the radial artery at the wrist was clamped proximally and distally. Longitudinal arteriotomy made sharply for a 2.5 to 3 cm anastomosis in cephalic vein to side radial artery with continuous suture of 6-0 Prolene, completing anastomosis, releasing vascular clamp noting good Doppler signal in the outflow. Good hemostasis was noted. The patient given 50 mg of protamine intravenously by Anesthesia. Subcutaneous tissue was approximated with 3-0 Monocryl, skin with subdermal 4-0 Monocryl and [place] glue applied. Job ID: [id number]
[2020-04-05] MEDS ORDERED: Heparin 1,000 UNITS/ML VIAL ONE (11:56)
== END 2020-04-05 12:30 | disposition home or self-care (01) ==
LOC: SDC 07:32
PROVIDERS: ATTEND Specialist
PROC: 031C0ZF Bypass Left Radial Artery to Lower Arm Vein, Open Approach (ICD-10-PCS; principal; 2020-04-05)
DX: I12.0 Hypertensive chronic kidney disease with stage 5 chronic kidney disease or end stage renal disease (principal); E11.22 Type 2 diabetes mellitus with diabetic chronic kidney disease; N18.6 End stage renal disease; K21.9 Gastro-esophageal reflux disease without esophagitis; E03.9 Hypothyroidism, unspecified; E78.5 Hyperlipidemia, unspecified; G47.33 Obstructive sleep apnea (adult) (pediatric); E66.01 Morbid (severe) obesity due to excess calories; Z68.37 Body mass index [BMI] 37.0-37.9, adult; Z79.02 Long term (current) use of antithrombotics/antiplatelets; Z79.4 Long term (current) use of insulin; Z79.899 Other long term (current) drug therapy; Z91.041 Radiographic dye allergy status; Z99.2 Dependence on renal dialysis
CPT/HCPCS: J0690; J1644; J2250; J2405; J2704; J2720; J3010; S0020

== ENCOUNTER 2020-06-29 16:26 | Inpatient (IN) | payer MEDICARE ==
[~2020-06-29 16:26] MED LIST changes: -ISOVUE-370 76%-LOCM 1 ML ONE; +Rocuronium Bromide 10 MG/ML (10ML VIAL) ONE
[2020-06-29] MEDS ORDERED: Dextrose 50% Abboject 50 ML SYRINGE IVP PRN (17:30)
[2020-06-29] MEDS ORDERED: Dextrose 5% in Water 1,000 ML IV PRN (17:30)
[2020-06-29 17:35] VITALS: BMI 38.7
[2020-06-29 20:08] LABS: INR-International Normal Ratio 1.1; Prothrombin Time 14.2 sec (12.0-14.7)
[2020-06-29] MEDS ORDERED: Fentanyl 100 MCG/2 ML VIAL SLOW IVP PRN (20:15)
[2020-06-29 20:17] LABS: Anion Gap 19 mmol/L (10-20); BUN (Urea Nitrogen) 25 mg/dL (8.9-20.6); Calc. Creatinine Clearance 38 mL/min (70-130); Calcium 9.4 mg/dL (7.8-10.44); Carbon Dioxide 22 mmol/L (22-29); Chloride 96 mmol/L (98-107); Glucose 347 mg/dL (70-105); Sodium 132 mmol/L (136-145)
[2020-06-29] MEDS: Heparin 10,000 UNITS/ 10 ML VIAL SLOW IVP SCH (20:27)
[2020-06-29] MEDS: Heparin 25,000 units/D5W 500 ML IV SCH (20:32)
[2020-06-29] MEDS ORDERED: Famotidine 20 MG TAB PO SCH (21:00)
[2020-06-29] MEDS: Atorvastatin Calcium 20 MG TAB PO SCH (21:14)
[2020-06-29] MEDS: hydrALAZINE 25 MG TAB PO SCH (21:14)
[2020-06-29] MEDS: Carvedilol 3.125 MG TAB PO SCH (21:14)
[2020-06-29] MEDS: Fentanyl 100 MCG/2 ML VIAL SLOW IVP PRN (21:15)
[2020-06-30 01:53] LABS: SARS-CoV-2 PCR by NAA Not Detected (NotDetected)
[2020-06-30] MEDS: diphenhydrAMINE 12.5 MG/5 ML UDCUP PO SCH ×2 (02:10→13:34)
[2020-06-30 02:22] LABS: #Eosinphils 0.3 thou/uL (0.0-0.7); #Lymphocytes 1.9 thou/uL (1.20-3.40); #Monocytes 1.2 thou/uL (0.11-0.59); #Neutrophils 4.8 thou/uL (1.40-6.50); %Basophils 0.4 % (0.0-1.0); %Eosinophils 3.6 % (0.0-10.0); %Lymphocytes 23.6 % (21.0-51.0); %Monocytes 14.1 % (0.0-10.0); %Neutrophils 58.3 % (42.0-75.0); Hemoglobin 12.3 g/dL (14.0-18.0); Mean Corpuscular HGB CONC 34.1 g/dL (32.0-36.0); Mean Corpuscular Hemoglobin 33.9 pg (27.0-31.0); Mean Corpuscular Volume 99.4 fL (78.0-98.0); Mean Platelet Volume 8.8 fL (7.4-10.4); Platelet Count 171 thou/uL (130-400); RBC Distribution Width 16.2 % (11.5-14.5); Red Blood Cell (RBC) Count 3.61 mill/uL (4.70-6.10); White Blood Cell (WBC) Count 8.2 thou/uL (4.8-10.8)
[2020-06-30 03:23] LABS: PTT Greater than 250.0 sec (22.9-36.1)
[2020-06-30] MEDS ORDERED: predniSONE 5 MG TAB PO SCH (06:00)
[2020-06-30] MEDS ORDERED: Levothyroxine 150 MCG TAB PO SCH (06:00)
[2020-06-30] MEDS ORDERED: diphenhydrAMINE 25 MG CAP PO SCH (06:00)
[2020-06-30] MEDS: Carvedilol 3.125 MG TAB PO SCH ×2 (06:27→21:37)
[2020-06-30] MEDS ORDERED: Lidocaine 1% (PF) 30 ML VIAL ONE (06:35)
[2020-06-30] MEDS ORDERED: Fentanyl 100 MCG/2 ML VIAL ONE ×3 (07:05→10:26)
[2020-06-30] MEDS ORDERED: Protamine Sulfate 50 MG/5 ML VIAL ONE (08:06)
[2020-06-30] MEDS ORDERED: Heparin 5,000 UNITS/ML VIAL ONE (08:06)
[2020-06-30] MEDS ORDERED: Propofol 1,000 MG/100 ML VIAL IV ONE ×2 (08:23→15:49)
[2020-06-30] MEDS ORDERED: Midazolam HCl 2 mg/2 ml Vial ONE (08:23)
[2020-06-30] MEDS ORDERED: PROPOFOL 200 MG/20 ML VIAL ONE (08:46)
[2020-06-30] MEDS ORDERED: Ondansetron PF 4 MG/2 ML Vial ONE (08:46)
[2020-06-30] MEDS ORDERED: Lidocaine 1% PF 5 ML VIAL ONE (08:46)
[2020-06-30] MEDS ORDERED: ePHEDrine Sulfate 50 MG/10 ML VIAL ONE (08:46)
[2020-06-30] MEDS ORDERED: Losartan 25 MG TAB PO SCH (09:00)
[2020-06-30] MEDS ORDERED: cloNIDine 0.1 MG TAB PO SCH (09:00)
[2020-06-30] MEDS ORDERED: EPINEPHrine 1 MG/ML AMP ONE (09:02)
[2020-06-30] MEDS ORDERED: Bupivacaine PF 0.5% 30 ML VIAL ONE (09:02)
[2020-06-30] MEDS ORDERED: Iopamidol 370 76% 50 ML VIAL FS ONE (09:28)
[2020-06-30] MEDS ORDERED: Iopamidol-370 76% 500 ML 1 ML ONE (09:46)
[2020-06-30] MEDS: predniSONE 20 MG TAB PO SCH ×2 (13:34→21:38)
[2020-06-30] MEDS: hydrALAZINE 25 MG TAB PO SCH ×4 (13:35→21:37)
[2020-06-30] MEDS: Insulin Regular 300 UNITS/3 ML VIAL SC PRN ×3 (13:48→23:02)
[2020-06-30] MEDS: Fentanyl 100 MCG/2 ML VIAL SLOW IVP PRN (13:49)
[2020-06-30 15:40] LABS: #Eosinphils 0.1 thou/uL (0.0-0.7); #Lymphocytes 1.9 thou/uL (1.20-3.40); #Neutrophils 9.7 thou/uL (1.40-6.50); %Basophils 0.1 % (0.0-1.0); %Eosinophils 0.5 % (0.0-10.0); %Lymphocytes 15.3 % (21.0-51.0); %Monocytes 7.6 % (0.0-10.0); %Neutrophils 76.5 % (42.0-75.0); Hemoglobin 12.4 g/dL (14.0-18.0); Mean Corpuscular Hemoglobin 31.7 pg (27.0-31.0); Mean Corpuscular Volume 99.2 fL (78.0-98.0); Mean Platelet Volume 8.7 fL (7.4-10.4); Platelet Count 212 thou/uL (130-400); RBC Distribution Width 16.4 % (11.5-14.5); Red Blood Cell (RBC) Count 3.92 mill/uL (4.70-6.10); White Blood Cell (WBC) Count 12.7 thou/uL (4.8-10.8)
[2020-06-30 15:49] LABS: Lactic Acid 3.2 mmol/L (0.5-2.2)
[2020-06-30] MEDS ORDERED: Ventilator Sedation Protocol 1 EACH FS ONE (15:49)
[2020-06-30 15:55] LABS: ALT (SGPT) 7 U/L (8-55); AST (SGOT) 20 U/L (5-34); Albumin 3.8 g/dL (3.5-5.0); Alkaline Phosphatase 104 U/L (40-110); Anion Gap 20 mmol/L (10-20); BUN (Urea Nitrogen) 38 mg/dL (8.9-20.6); Bilirubin, Total 0.5 mg/dL (0.2-1.2); Calc. Creatinine Clearance 28 mL/min (70-130); Calcium 9.6 mg/dL (7.8-10.44); Carbon Dioxide 23 mmol/L (22-29); Chloride 96 mmol/L (98-107); Globulin 3.2 g/dL (2.4-3.5); Glucose 310 mg/dL (70-105); Potassium 5.2 mmol/L (3.5-5.1); Sodium 134 mmol/L (136-145)
[2020-06-30] MEDS: Heparin 25,000 units/D5W 500 ML IV SCH (15:59)
[2020-06-30 16:00] LABS: Actual Bicarbonate (HCO3a) 23.3 mEq/L (22-28); Base Excess (BEa) -2.6 mEq/L (-2.0 to +3.0); Calcium, Ionized (arterial) 1.17 mmol/L (1.12-1.30); Carboxyhemoglobin (COHb) 1.1 gm% (0.0-3.0); O2 Tension (PaO2), arterial 190.6 mmHg (80.0-100.0); Potassium - ABG Lab 5.23 mmol/L (3.70-5.30); pH, Arterial 7.34 (7.35-7.45)
[2020-06-30] MEDS ORDERED: Lorazepam 2 MG/ML VIAL SLOW IVP PRN (16:00)
[2020-06-30] MEDS: Propofol 1,000 MG/100 ML VIAL IV PRN ×2 (16:00→21:59)
[2020-06-30] MEDS ORDERED: Morphine 2 MG/ML VIAL SLOW IVP PRN (16:00)
[2020-06-30] MEDS ORDERED: Fentanyl CADD 100 ML IV SCH (16:00)
[2020-06-30] MEDS ORDERED: Propofol BOLUS 1,000 MG/100 ML VIAL IV PRN (16:00)
[2020-06-30] MEDS ORDERED: Fentanyl BOLUS 250 ML IVPB PRN (16:00)
[2020-06-30] MEDS ORDERED: DISCONTINUE PREVIOUS NARCOTIC PAIN MEDICATIONS AND BENZODIAZEPINES FS SCH (16:00)
[2020-06-30 16:02] LABS: ANA Symphony (Qualitative) Negative (Negative); ANA Symphony (Quantitative) 0.3 Ratio (< 0.7 Negative)
[2020-06-30 16:06] LABS: Puncture Site RRA
[2020-06-30] MEDS: Heparin 10,000 UNITS/ 10 ML VIAL SLOW IVP SCH (16:25)
[2020-06-30 16:30] LABS: D-Dimer Test 9.21 *mcg/mL (0.27-0.43); INR-International Normal Ratio 1.1; PTT 34.8 sec (22.9-36.1); Prothrombin Time 13.9 sec (12.0-14.7)
[2020-06-30 16:31] LABS: Factor VIII Test 250.4 % ACTIVE (56-157)
[2020-06-30] MEDS ORDERED: methylPREDNISolone Sod Succ 40 MG VIAL IVP SCH (17:00)
[2020-06-30] MEDS ORDERED: diphenhydrAMINE 50 MG/ML VIAL IVP SCH (17:00)
[2020-06-30 17:27] LABS: Protein C Activity 115 % (78-152)
[2020-06-30] MEDS ORDERED: Heparin 25,000 units/D5W 500 ML IVPB SCH (17:45)
[2020-06-30] MEDS ORDERED: Heparin 10,000 UNITS/ 10 ML VIAL SLOW IVP SCH (17:45)
[2020-06-30] MEDS ORDERED: Sodium Chloride 0.9% 1,000 ML IV SCH (18:30)
[2020-06-30] MEDS ORDERED: Midazolam HCl 2 mg/2 ml Vial SLOW IVP SCH (19:00)
[2020-06-30] MEDS ORDERED: Albumin 25% 25 GM/100 ML BOT IVPB SCH (20:00)
[2020-06-30] MEDS ORDERED: Famotidine 20 MG TAB PO SCH (21:00)
[2020-06-30] MEDS ORDERED: Apixaban 5 MG TAB PO SCH (21:00)
[2020-06-30] MEDS: Atorvastatin Calcium 20 MG TAB PO SCH (21:37)
[2020-06-30 21:59] VITALS: BP 147/102
[2020-07-01] MEDS: Propofol 1,000 MG/100 ML VIAL IV PRN (00:46)
[2020-07-01 01:31] VITALS: TEMP 98.7
[2020-07-03 13:49] LABS: Cardiolipin IgA Ab 1.8 APL-U/mL (<14 Negative); Cardiolipin IgG Ab 0.9 GPL-U/mL (<10 Negative); Cardiolipin IgM Ab 6.4 MPL-U/mL (<10 Negative); EliA APS New Method **** NEW METHOD ****
[2020-07-03 14:48] LABS: HEX PHOS LA Tube 1 47.7 SEC; HEX PHOS LA Tube 2 43.7 SEC
[2020-07-03 14:49] LABS: DRVVT Confirm 35.9
[2020-07-13 19:36] LABS: Activated Protein C Resistance 2.7 ratio (.)
== END 2020-07-01 01:28 | disposition short-term general hospital (02) | DRG 252 ==
LOC: T4-A 16:26 → 2NO 06-30 12:49 → CCU 06-30 15:37
PROVIDERS: ADMIT Specialist; ATTEND Specialist
PROC: 5A1D70Z Performance of Urinary Filtration, Intermittent, Less than 6 Hours Per Day (ICD-10-PCS; 2020-06-29)
PROC: B31J1ZZ Fluoroscopy of Left Upper Extremity Arteries using Low Osmolar Contrast (ICD-10-PCS; 2020-06-29)
PROC: B4101ZZ Fluoroscopy of Abdominal Aorta using Low Osmolar Contrast (ICD-10-PCS; principal; 2020-06-30)
PROC: 03C80ZZ Extirpation of Matter from Left Brachial Artery, Open Approach (ICD-10-PCS; 2020-06-30)
PROC: 03CC0ZZ Extirpation of Matter from Left Radial Artery, Open Approach (ICD-10-PCS; 2020-06-30)
PROC: 03CA0ZZ Extirpation of Matter from Left Ulnar Artery, Open Approach (ICD-10-PCS; 2020-06-30)
PROC: B3121ZZ Fluoroscopy of Left Subclavian Artery using Low Osmolar Contrast (ICD-10-PCS; 2020-06-30)
PROC: B31J1ZZ Fluoroscopy of Left Upper Extremity Arteries using Low Osmolar Contrast (ICD-10-PCS; 2020-06-30)
PROC: 0BH17EZ Insertion of Endotracheal Airway into Trachea, Via Natural or Artificial Opening (ICD-10-PCS; 2020-06-30)
PROC: 5A1945Z Respiratory Ventilation, 24-96 Consecutive Hours (ICD-10-PCS; 2020-06-30)
PROC: 02HV33Z Insertion of Infusion Device into Superior Vena Cava, Percutaneous Approach (ICD-10-PCS; 2020-06-30)
DX: T82.590A Other mechanical complication of surgically created arteriovenous fistula, initial encounter (principal); N18.6 End stage renal disease; T80.0XXA Air embolism following infusion, transfusion and therapeutic injection, initial encounter; I26.99 Other pulmonary embolism without acute cor pulmonale; J96.00 Acute respiratory failure, unspecified whether with hypoxia or hypercapnia; I50.33 Acute on chronic diastolic (congestive) heart failure; I13.2 Hypertensive heart and chronic kidney disease with heart failure and with stage 5 chronic kidney disease, or end stage renal disease; E66.01 Morbid (severe) obesity due to excess calories; I25.10 Atherosclerotic heart disease of native coronary artery without angina pectoris; I99.8 Other disorder of circulatory system; K21.9 Gastro-esophageal reflux disease without esophagitis; E11.22 Type 2 diabetes mellitus with diabetic chronic kidney disease; E03.9 Hypothyroidism, unspecified; E78.5 Hyperlipidemia, unspecified; D63.8 Anemia in other chronic diseases classified elsewhere; I48.91 Unspecified atrial fibrillation; G47.33 Obstructive sleep apnea (adult) (pediatric); Z82.3 Family history of stroke; Z83.3 Family history of diabetes mellitus; Z79.02 Long term (current) use of antithrombotics/antiplatelets; Z82.49 Family history of ischemic heart disease and other diseases of the circulatory system; Z99.2 Dependence on renal dialysis; Z91.041 Radiographic dye allergy status; Z68.38 Body mass index [BMI] 38.0-38.9, adult; Y84.8 Other medical procedures as the cause of abnormal reaction of the patient, or of later complication, without mention of misadventure at the time of the procedure
CPT/HCPCS: 36216; 36221; 36415; 36416; 36600; 70450; 71045; 71275; 75605; 75710; 76942; 80048; 80053; 82805; 83090; 83605; 83880; 84484; 85025; 85240; 85300; 85303; 85305; 85307; 85379; 85598; 85610; 85613; 85652; 85730; 86038; 86140; 86147; 86225; 87635; 90945; 93005; 93010; 93306; 93970; 94002; G0257; J0171; J0690; J1200; J1644; J1815; J2001; J2250; J2405; J2704; J2720; J2920; J3010; J7512; P9047; Q0163; Q9967; S0020; U0003; U0005